=== PATIENT | female | born 1960 | race Caucasian/White ===

== ENCOUNTER 2017-11-09 09:45 | Inpatient (IN) | payer MEDICAID ==
[~2017-11-09] VITALS: Ht 147.3 cm; Wt 59.2 kg
[2017-11-09 10:30] LABS: Urine Bacteria NONE SEEN /hpf (None Seen); Urine Blood Negative /uL (Negative); Urine Hyaline Cast FEW /lpf (0 - 2); Urine Mucus MODERATE (None Seen); Urine Specific Gravity 1.022 (1.001-1.035); Urine WBC 2 /hpf (0 - 5)
[2017-11-09 10:34] LABS: Basophils # (auto) 0.1 uL; Eosinophils # (auto) 0.1 uL; Hemoglobin 9.2 g/dL (12.2-16.2); Lymphocytes # (auto) 0.6 uL; Mean Corpuscular Volume 106.7 fL (80.0-100.0); White Blood Cell 14.7 10^3/uL (4.4-10.8)
[2017-11-09 10:36] LABS: Basophils % (auto) 0.6 % (0.0-2.0); Eosinophils % (auto) 0.5 % (0.0-7.0); Hematocrit 27.3 % (36.0-46.0); Lymphocytes % (auto) 4.2 % (10.0-50.0); Mean Corpuscular Hemoglobin 36.1 pg (28.0-32.0); Mean Corpuscular Hgb Conc. 33.8 g/dL (32.0-36.0); Monocytes % (auto) 6.5 % (0.0-12.0); Neutrophils % (auto) 88.2 % (37.0-80.0); Nucleated Red Blood Cells % 0.1 %; Platelet Count (auto) 199 10^3/uL (140-450); Red Blood Cells 2.56 10^6/uL (4.0-5.20); Red Cell Distribution Width 19.9 % (11.8-14.3)
[2017-11-09 10:42] LABS: Alcohol, Urine < 3.0 mg/dL (0-5); Amphetamine Screen, Urine NEGATIVE (NEGATIVE); Barbiturate Scree,Urine NEGATIVE (NEGATIVE); Benzodiazephine Screen, Urine NEGATIVE (NEGATIVE); Cannabinoid Screen, Urine NEGATIVE (NEGATIVE); Cocaine Screen, Urine NEGATIVE (NEGATIVE); Opiate Scree,Urine NEGATIVE (NEGATIVE); Phencyclidine Screen, Urine NEGATIVE (NEGATIVE)
[2017-11-09 10:57] LABS: Albumin 2.9 g/dL (3.4-5.0); BUN/Creatinine Ratio 5.6; Bilirubin, Total 4.6 mg/dL (0.2-1.0); Blood Alcohol < 3.0 mg/dL (0-5); Lipase 2261 U/L (73-393); Magnesium 1.3 mg/dL (1.6-2.6); Total Protein 6.7 g/dL (6.4-8.2)
[2017-11-09 11:02] LABS: Potassium 2.6 mmol/L (3.5-5.1)
[2017-11-09] MEDS: POTASSIUM CHL 20MEQ/100ML 100 ML IV SCH ×2 (12:10→14:34)
[2017-11-09] MEDS ORDERED: LORazepam 2MG/ML-1ML VIAL IV PRN (13:30)
[2017-11-09] MEDS ORDERED: LACTULOSE 20Gm/30ML SOLN PO ONE (13:45)
[2017-11-09] MEDS ORDERED: MORPHINE SULFATE 8mg/ml INJ SDV IV PRN (13:45)
[2017-11-09] MEDS ORDERED: MAGNESIUM SULFATE 1GM/100ML 100 ML IV ONE (13:45)
[2017-11-09] MEDS ORDERED: TEMAZEPAM 15 MG CAP PO PRN (13:45)
[2017-11-09] MEDS ORDERED: cefTRIAXone 1GM/10ml IVPUSH 10 ML IV ONE (13:45)
[2017-11-09] MEDS ORDERED: DOCUSATE SOD 100 MG CAP PO PRN (13:45)
[2017-11-09] MEDS ORDERED: ACETAMINOPHEN 325 MG TAB PO PRN (13:45)
[2017-11-09] MEDS ORDERED: ONDANSETRON HCL 4 MG/2 ML VIAL IV PRN (13:45)
[2017-11-09] MEDS ORDERED: NITROGLYCERIN 0.4 MG SL TAB SL PRN (13:45)
[2017-11-09] MEDS ORDERED: MULTIPLE VITAMIN TAB PO ONE (14:00)
[2017-11-09] MEDS ORDERED: FAMOTIDINE 20 MG TAB PO ONE (14:00)
[2017-11-09] MEDS: MORPHINE SULFATE 8mg/ml INJ SDV IV PRN (14:06)
[2017-11-09] MEDS: SODIUM CHLORIDE 0.9% 1,000 ML IV SCH ×2 (14:34→22:01)
[2017-11-09] MEDS: GABAPENTIN 300 MG CAP PO SCH ×2 (14:52→22:01)
[2017-11-09] MEDS: metroNIDAZOLE 500MG/100ML 100 ML IV SCH ×2 (15:23→22:01)
[2017-11-09 17:19] LABS: BUN/Creatinine Ratio 5.1
[2017-11-09 17:25] LABS: Potassium 2.6 mmol/L (3.5-5.1)
[2017-11-09] MEDS ORDERED: POTASSIUM CHL 20MEQ/100ML 100 ML IV ONE (17:30)
[2017-11-09] MEDS: BOOST PLUS 8 ounce PO SCH (17:40)
[2017-11-09] MEDS: HYDROcodone-ACET 5/325MG TAB PO PRN (19:22)
[2017-11-09 21:30] VITALS: BP 117/69
[2017-11-09 21:45] LABS: BUN/Creatinine Ratio 9.5; Calcium 7.9 mg/dL (8.5-10.1); Potassium 3.5 mmol/L (3.5-5.1)
[2017-11-09 22:00] VITALS: BP 117/69
[2017-11-09] MEDS: FAMOTIDINE 20 MG TAB PO SCH (22:02)
[2017-11-09] MEDS: LACTULOSE 20Gm/30ML SOLN PO SCH (22:02)
[2017-11-10] MEDS: chlordiazePOXIDE HCL 25 MG CAP PO PRN ×3 (00:09→11:57)
[2017-11-10 05:00] VITALS: BP 112/71
[2017-11-10] MEDS: SODIUM CHLORIDE 0.9% 1,000 ML IV SCH (06:00)
[2017-11-10] MEDS: metroNIDAZOLE 500MG/100ML 100 ML IV SCH (06:00)
[2017-11-10] MEDS: GABAPENTIN 300 MG CAP PO SCH ×3 (06:01→22:35)
[2017-11-10 07:08] LABS: Basophils # (auto) 0.1 uL; Eosinophils # (auto) 0.1 uL; Lymphocytes # (auto) 0.5 uL; Platelet Count (auto) 154 10^3/uL (140-450)
[2017-11-10 07:12] LABS: Basophils % (auto) 0.7 % (0.0-2.0); Eosinophils % (auto) 1.7 % (0.0-7.0); Hematocrit 23.6 % (36.0-46.0); Hemoglobin 8.1 g/dL (12.2-16.2); Lymphocytes % (auto) 5.8 % (10.0-50.0); Mean Corpuscular Hemoglobin 37.2 pg (28.0-32.0); Mean Corpuscular Hgb Conc. 34.4 g/dL (32.0-36.0); Monocytes # (auto) 0.6 uL; Neutrophils # (auto) 7.1 uL; Neutrophils % (auto) 84.8 % (37.0-80.0); Nucleated Red Blood Cells % 0.3 %; Red Blood Cells 2.18 10^6/uL (4.0-5.20); Red Cell Distribution Width 19.3 % (11.8-14.3); White Blood Cell 8.4 10^3/uL (4.4-10.8)
[2017-11-10 07:18] LABS: Mean Corpuscular Volume 108.1 fL (80.0-100.0)
[2017-11-10 07:40] LABS: Albumin 2.3 g/dL (3.4-5.0); BUN/Creatinine Ratio 7.1; Bilirubin, Total 3.1 mg/dL (0.2-1.0); Magnesium 1.5 mg/dL (1.6-2.6); Total Protein 5.3 g/dL (6.4-8.2)
[2017-11-10 07:56] LABS: Potassium 2.5 mmol/L (3.5-5.1)
[2017-11-10 07:57] VITALS: BP 111/69
[2017-11-10] MEDS: BOOST PLUS 8 ounce PO SCH ×3 (08:00→18:00)
[2017-11-10] MEDS ORDERED: POTASSIUM CHL 20 Meq TABLET PO ONE (08:30)
[2017-11-10] MEDS ORDERED: POTASSIUM CHLORIDE IV ONE (09:00)
[2017-11-10] MEDS ORDERED: cefTRIAXone 1GM/10ml IVPUSH 10 ML IV SCH (09:00)
[2017-11-10] MEDS ORDERED: POTASSIUM CHL 20MEQ/100ML 100 ML IV SCH (09:00)
[2017-11-10] MEDS: MULTIPLE VITAMIN TAB PO SCH (10:00)
[2017-11-10] MEDS ORDERED: POTASSIUM CHL 20MEQ/50ML 50 ML IV SCH (10:00)
[2017-11-10] MEDS: LACTULOSE 20Gm/30ML SOLN PO SCH ×2 (10:00→22:36)
[2017-11-10] MEDS: POTASSIUM CHL 20MEQ/100ML 100 ML IV SCH ×2 (10:03→11:54)
[2017-11-10] MEDS: FAMOTIDINE 20 MG TAB PO SCH ×2 (10:05→22:36)
[2017-11-10 11:40] VITALS: BP 112/70
[2017-11-10] MEDS ORDERED: D5W/SOD CHL 0.9%/KCL 40MEQ 1,000 ML IV ONE (11:45)
[2017-11-10] MEDS: MAGNESIUM SULFATE 1GM/100ML 100 ML IV SCH ×3 (12:00→19:06)
[2017-11-10] MEDS: chlordiazePOXIDE HCL 25 MG CAP PO SCH ×2 (14:00→22:36)
[2017-11-10] MEDS ORDERED: MAGNESIUM SULFATE 1GM/100ML 100 ML IV ONE ×2 (19:30)
[2017-11-10] MEDS: POTASSIUM CHL 20 Meq TABLET PO SCH (22:35)
[2017-11-11 00:20] VITALS: BP 106/64
[2017-11-11 05:40] VITALS: BP 117/76
[2017-11-11] MEDS: GABAPENTIN 300 MG CAP PO SCH ×3 (05:53→22:07)
[2017-11-11] MEDS: chlordiazePOXIDE HCL 25 MG CAP PO SCH ×3 (05:53→22:07)
[2017-11-11 08:15] LABS: Basophils # (auto) 0.1 uL; Basophils % (auto) 1.3 % (0.0-2.0); Eosinophils # (auto) 0.1 uL; Eosinophils % (auto) 1.6 % (0.0-7.0); Hematocrit 23.3 % (36.0-46.0); Hemoglobin 7.7 g/dL (12.2-16.2); Lymphocytes # (auto) 0.6 uL; Lymphocytes % (auto) 6.4 % (10.0-50.0); Mean Corpuscular Hemoglobin 36.3 pg (28.0-32.0); Mean Corpuscular Hgb Conc. 33.2 g/dL (32.0-36.0); Mean Corpuscular Volume 109.5 fL (80.0-100.0); Monocytes # (auto) 0.9 uL; Monocytes % (auto) 9.8 % (0.0-12.0); Neutrophils # (auto) 7.6 uL; Neutrophils % (auto) 80.9 % (37.0-80.0); Nucleated Red Blood Cells % 0.6 %; Platelet Count (auto) 178 10^3/uL (140-450); Red Blood Cells 2.13 10^6/uL (4.0-5.20); Red Cell Distribution Width 19.3 % (11.8-14.3); White Blood Cell 9.3 10^3/uL (4.4-10.8)
[2017-11-11 08:22] LABS: BUN/Creatinine Ratio 2.1; Calcium 8.1 mg/dL (8.5-10.1); Potassium 3.6 mmol/L (3.5-5.1)
[2017-11-11 09:00] VITALS: BP 94/58
[2017-11-11] MEDS: POTASSIUM CHL 20 Meq TABLET PO SCH (10:40)
[2017-11-11] MEDS: LACTULOSE 20Gm/30ML SOLN PO SCH ×2 (10:40→22:06)
[2017-11-11] MEDS: MULTIPLE VITAMIN TAB PO SCH (10:40)
[2017-11-11] MEDS: FAMOTIDINE 20 MG TAB PO SCH ×2 (10:40→22:07)
[2017-11-11] MEDS: BOOST PLUS 8 ounce PO SCH ×3 (10:45→22:06)
[2017-11-11 22:00] VITALS: BP 120/69
[2017-11-12 05:20] VITALS: BP 108/69
[2017-11-12] MEDS: GABAPENTIN 300 MG CAP PO SCH ×3 (06:00→23:43)
[2017-11-12] MEDS: chlordiazePOXIDE HCL 25 MG CAP PO SCH ×3 (06:00→23:43)
[2017-11-12 07:13] LABS: Basophils # (auto) 0.1 uL; Eosinophils # (auto) 0.2 uL; Hemoglobin 7.9 g/dL (12.2-16.2); Lymphocytes # (auto) 0.7 uL; Neutrophils # (auto) 7.7 uL; Nucleated Red Blood Cells % 0.6 %
[2017-11-12 07:17] LABS: Basophils % (auto) 1.2 % (0.0-2.0); Eosinophils % (auto) 1.7 % (0.0-7.0); Hematocrit 23.5 % (36.0-46.0); Lymphocytes % (auto) 6.9 % (10.0-50.0); Mean Corpuscular Hemoglobin 37.3 pg (28.0-32.0); Mean Corpuscular Hgb Conc. 33.6 g/dL (32.0-36.0); Monocytes % (auto) 10.5 % (0.0-12.0); Neutrophils % (auto) 79.7 % (37.0-80.0); Platelet Count (auto) 176 10^3/uL (140-450); Red Blood Cells 2.12 10^6/uL (4.0-5.20); Red Cell Distribution Width 20.3 % (11.8-14.3); White Blood Cell 9.6 10^3/uL (4.4-10.8)
[2017-11-12 07:32] LABS: Calcium 8.6 mg/dL (8.5-10.1); Magnesium 1.8 mg/dL (1.6-2.6); Potassium 3.3 mmol/L (3.5-5.1)
[2017-11-12 07:46] LABS: BUN/Creatinine Ratio 7.1
[2017-11-12 08:00] VITALS: BP 108/67
[2017-11-12 09:00] VITALS: BP 100/67
[2017-11-12] MEDS: FAMOTIDINE 20 MG TAB PO SCH ×2 (09:54→23:44)
[2017-11-12] MEDS: LACTULOSE 20Gm/30ML SOLN PO SCH (09:54)
[2017-11-12] MEDS: MULTIPLE VITAMIN TAB PO SCH (09:54)
[2017-11-12] MEDS: BOOST PLUS 8 ounce PO SCH ×3 (10:02→18:31)
[2017-11-12 13:00] VITALS: BP 93/55
[2017-11-12] MEDS: MORPHINE SULFATE 8mg/ml INJ SDV IV PRN (19:56)
[2017-11-12 21:54] VITALS: BP 99/63
[2017-11-13 05:00] VITALS: BP 96/67
[2017-11-13] MEDS: GABAPENTIN 300 MG CAP PO SCH ×3 (05:58→23:07)
[2017-11-13] MEDS: chlordiazePOXIDE HCL 25 MG CAP PO SCH ×3 (05:58→23:06)
[2017-11-13 06:03] LABS: Eosinophils # (auto) 0.2 uL; Eosinophils % (auto) 1.6 % (0.0-7.0)
[2017-11-13 06:30] LABS: Basophils # (auto) 0.1 uL; Basophils % (auto) 1.3 % (0.0-2.0); Hematocrit 23.4 % (36.0-46.0); Hemoglobin 7.6 g/dL (12.2-16.2); Lymphocytes # (auto) 0.6 uL; Lymphocytes % (auto) 6.2 % (10.0-50.0); Mean Corpuscular Hgb Conc. 32.5 g/dL (32.0-36.0); Mean Corpuscular Volume 113.8 fL (80.0-100.0); Monocytes % (auto) 9.9 % (0.0-12.0); Neutrophils # (auto) 8.5 uL; Nucleated Red Blood Cells % 0.2 %; Platelet Count (auto) 191 10^3/uL (140-450); Red Blood Cells 2.06 10^6/uL (4.0-5.20); White Blood Cell 10.5 10^3/uL (4.4-10.8)
[2017-11-13 06:39] LABS: Red Cell Distribution Width 21.5 % (11.8-14.3)
[2017-11-13 06:41] LABS: BUN/Creatinine Ratio 9.1; Calcium 8.1 mg/dL (8.5-10.1); Potassium 3.4 mmol/L (3.5-5.1)
[2017-11-13 08:00] VITALS: BP 99/63
[2017-11-13] MEDS: BOOST PLUS 8 ounce PO SCH ×3 (08:00→18:00)
[2017-11-13] MEDS: MULTIPLE VITAMIN TAB PO SCH (10:00)
[2017-11-13] MEDS: LACTULOSE 20Gm/30ML SOLN PO SCH (10:00)
[2017-11-13] MEDS: FAMOTIDINE 20 MG TAB PO SCH ×2 (10:00→23:07)
[2017-11-13 13:00] VITALS: BP 92/58
[2017-11-13] MEDS ORDERED: SODIUM CHLORIDE 0.9% 250 ML IV ONE (14:00)
[2017-11-13] MEDS: SOD CHL 0.9%/ KCL 40MEQ 1,000 ML IV SCH ×2 (15:12→23:45)
[2017-11-13] MEDS: metroNIDAZOLE 500MG/100ML 100 ML IV SCH ×2 (15:12→20:42)
[2017-11-13] MEDS ORDERED: SODIUM CHLORIDE 0.9% 1,000 ML IV SCH (15:30)
[2017-11-13] MEDS ORDERED: SODIUM CHLORIDE 0.9% 1,000 ML IV ONE (15:30)
[2017-11-13] MEDS: CEFEPIME HYDROCHLORIDE 2 GM in SODIUM CHL 0.9% 50 ML IV SCH (16:40)
[2017-11-13 19:01] LABS: Folate (Folic Acid) 7.17 ng/mL (5.38-24)
[2017-11-13 22:06] VITALS: BP 124/90
[2017-11-13 22:09] VITALS: BP 110/66
[2017-11-14] MEDS: CEFEPIME HYDROCHLORIDE 2 GM in SODIUM CHL 0.9% 50 ML IV SCH ×3 (00:15→17:35)
[2017-11-14] MEDS: MORPHINE SULFATE 8mg/ml INJ SDV IV PRN (02:00)
[2017-11-14] MEDS: metroNIDAZOLE 500MG/100ML 100 ML IV SCH ×4 (02:06→20:24)
[2017-11-14 05:25] VITALS: BP 95/60
[2017-11-14] MEDS: chlordiazePOXIDE HCL 25 MG CAP PO SCH ×3 (05:59→22:43)
[2017-11-14] MEDS: GABAPENTIN 300 MG CAP PO SCH ×3 (05:59→22:43)
[2017-11-14 06:11] LABS: INR 1.41 (0.9-1.15); Prothrombin Time 15.4 sec (9.37-12.3)
[2017-11-14 06:22] LABS: Hemoglobin 7.7 g/dL (12.2-16.2); Monocytes # (auto) 1.1 uL; Potassium 4.2 mmol/L (3.5-5.1)
[2017-11-14 06:26] LABS: Albumin 1.9 g/dL (3.4-5.0); BUN/Creatinine Ratio 17.2; Calcium 7.7 mg/dL (8.5-10.1)
[2017-11-14 06:27] LABS: Basophils # (auto) 0.1 uL; Basophils % (auto) 0.9 % (0.0-2.0); Eosinophils # (auto) 0.1 uL; Eosinophils % (auto) 1.3 % (0.0-7.0); Hematocrit 23.3 % (36.0-46.0); Lymphocytes # (auto) 0.6 uL; Mean Corpuscular Hemoglobin 37.4 pg (28.0-32.0); Mean Corpuscular Hgb Conc. 32.8 g/dL (32.0-36.0); Mean Corpuscular Volume 113.9 fL (80.0-100.0); Monocytes % (auto) 10.1 % (0.0-12.0); Neutrophils # (auto) 9.2 uL; Neutrophils % (auto) 82.7 % (37.0-80.0); Nucleated Red Blood Cells % 0.4 %; Platelet Count (auto) 214 10^3/uL (140-450); Red Blood Cells 2.05 10^6/uL (4.0-5.20); White Blood Cell 11.1 10^3/uL (4.4-10.8)
[2017-11-14 06:29] LABS: Bilirubin, Total 4.7 mg/dL (0.2-1.0); Total Protein 4.8 g/dL (6.4-8.2)
[2017-11-14 06:48] LABS: Red Cell Distribution Width 21.4 % (11.8-14.3)
[2017-11-14 08:00] VITALS: BP 99/64
[2017-11-14] MEDS: BOOST PLUS 8 ounce PO SCH ×3 (08:00→17:56)
[2017-11-14 09:00] VITALS: BP 99/64
[2017-11-14] MEDS: SOD CHL 0.9%/ KCL 40MEQ 1,000 ML IV SCH ×2 (09:45→20:23)
[2017-11-14] MEDS: FAMOTIDINE 20 MG TAB PO SCH ×2 (10:00→22:44)
[2017-11-14] MEDS: LACTULOSE 20Gm/30ML SOLN PO SCH (10:41)
[2017-11-14] MEDS: THIAMINE INJ 100 MG, MULTIPLE VITAMIN 10 ML, FOLIC ACID 1 MG, MAGNESIUM SULF SDV 50% 8 ... IV SCH ×5 (12:27)
[2017-11-14 13:00] VITALS: BP 100/63
[2017-11-14 16:55] VITALS: BP 104/68
[2017-11-14] MEDS ORDERED: FUROSEMIDE 40 MG/4 ML VIAL IV ONE (19:45)
[2017-11-14 21:06] VITALS: BP 138/82
[2017-11-15] MEDS: CEFEPIME HYDROCHLORIDE 2 GM in SODIUM CHL 0.9% 50 ML IV SCH ×2 (00:02→09:59)
[2017-11-15] MEDS: metroNIDAZOLE 500MG/100ML 100 ML IV SCH ×4 (01:54→21:43)
[2017-11-15 05:00] VITALS: BP 126/81
[2017-11-15] MEDS: SOD CHL 0.9%/ KCL 40MEQ 1,000 ML IV SCH ×2 (05:45→15:45)
[2017-11-15] MEDS: chlordiazePOXIDE HCL 25 MG CAP PO SCH ×2 (06:00→14:13)
[2017-11-15] MEDS: GABAPENTIN 300 MG CAP PO SCH ×3 (06:00→22:38)
[2017-11-15 06:49] LABS: Basophils # (auto) 0.1 uL; Eosinophils # (auto) 0.1 uL; Lymphocytes # (auto) 0.7 uL; Neutrophils # (auto) 10.4 uL; Nucleated Red Blood Cells % 0.4 %; White Blood Cell 12.4 10^3/uL (4.4-10.8)
[2017-11-15 06:52] LABS: Hematocrit 24.7 % (36.0-46.0); Lymphocytes % (auto) 5.7 % (10.0-50.0); Mean Corpuscular Hemoglobin 36.6 pg (28.0-32.0); Mean Corpuscular Hgb Conc. 32.4 g/dL (32.0-36.0); Monocytes % (auto) 8.4 % (0.0-12.0); Neutrophils % (auto) 83.9 % (37.0-80.0); Platelet Count (auto) 248 10^3/uL (140-450); Red Blood Cells 2.19 10^6/uL (4.0-5.20)
[2017-11-15 06:58] LABS: Red Cell Distribution Width 20.9 % (11.8-14.3)
[2017-11-15 07:12] LABS: Albumin 1.9 g/dL (3.4-5.0); BUN/Creatinine Ratio 14.7; Calcium 7.5 mg/dL (8.5-10.1)
[2017-11-15 07:24] LABS: Bilirubin, Total 5.6 mg/dL (0.2-1.0); Total Protein 4.9 g/dL (6.4-8.2)
[2017-11-15] MEDS: BOOST PLUS 8 ounce PO SCH ×3 (08:00→18:00)
[2017-11-15] MEDS: LACTULOSE 20Gm/30ML SOLN PO SCH (09:59)
[2017-11-15] MEDS: FAMOTIDINE 20 MG TAB PO SCH ×2 (09:59→22:39)
[2017-11-15 10:16] VITALS: BP 111/69
[2017-11-15 13:20] VITALS: BP 107/65
[2017-11-15] MEDS: POTASSIUM CHL 20MEQ/100ML 100 ML IV SCH ×2 (13:30→14:12)
[2017-11-15] MEDS: THIAMINE INJ 100 MG, MULTIPLE VITAMIN 10 ML, FOLIC ACID 1 MG, MAGNESIUM SULF SDV 50% 8 ... IV SCH ×5 (14:12)
[2017-11-15 18:19] VITALS: BP 110/60
[2017-11-15 20:00] VITALS: BP 111/65
[2017-11-15 23:25] VITALS: BP 111/65
[2017-11-16] MEDS: SOD CHL 0.9%/ KCL 40MEQ 1,000 ML IV SCH ×4 (01:45→21:57)
[2017-11-16] MEDS: metroNIDAZOLE 500MG/100ML 100 ML IV SCH ×3 (02:08→13:25)
[2017-11-16 05:21] VITALS: BP 102/63
[2017-11-16] MEDS: GABAPENTIN 300 MG CAP PO SCH ×3 (05:33→21:56)
[2017-11-16] MEDS: CEFEPIME HYDROCHLORIDE 2 GM in SODIUM CHL 0.9% 50 ML IV SCH ×2 (08:18→15:55)
[2017-11-16] MEDS: BOOST PLUS 8 ounce PO SCH ×3 (08:19→18:00)
[2017-11-16 09:00] VITALS: BP 120/72
[2017-11-16] MEDS ORDERED: chlordiazePOXIDE HCL 25 MG CAP PO SCH (10:00)
[2017-11-16] MEDS: LACTULOSE 20Gm/30ML SOLN PO SCH (10:00)
[2017-11-16] MEDS: FAMOTIDINE 20 MG TAB PO SCH ×2 (10:51→21:57)
[2017-11-16] MEDS: THIAMINE INJ 100 MG, MULTIPLE VITAMIN 10 ML, FOLIC ACID 1 MG, MAGNESIUM SULF SDV 50% 8 ... IV SCH ×10 (12:13→12:34)
[2017-11-16] MEDS: MORPHINE SULFATE 8mg/ml INJ SDV IV PRN (12:57)
[2017-11-16 13:00] VITALS: BP 106/67
[2017-11-16 17:00] VITALS: BP 115/72
[2017-11-16] MEDS: PRO-STAT 64 30ML PO SCH (21:57)
[2017-11-16 22:11] VITALS: BP 148/82
[2017-11-17 05:09] VITALS: BP 110/62
[2017-11-17] MEDS: GABAPENTIN 300 MG CAP PO SCH ×3 (05:33→21:52)
[2017-11-17 09:00] VITALS: BP 116/72
[2017-11-17] MEDS: LACTULOSE 20Gm/30ML SOLN PO SCH (10:00)
[2017-11-17] MEDS: BOOST PLUS 8 ounce PO SCH ×3 (10:18→18:16)
[2017-11-17] MEDS: PRO-STAT 64 30ML PO SCH ×2 (10:19→21:53)
[2017-11-17] MEDS: FAMOTIDINE 20 MG TAB PO SCH ×2 (10:19→21:52)
[2017-11-17 13:00] VITALS: BP 121/79
[2017-11-17] MEDS: THIAMINE INJ 100 MG, MULTIPLE VITAMIN 10 ML, FOLIC ACID 1 MG, MAGNESIUM SULF SDV 50% 8 ... IV SCH ×5 (13:07)
[2017-11-17] MEDS: SOD CHL 0.9%/ KCL 40MEQ 1,000 ML IV SCH ×2 (15:41→19:00)
[2017-11-18 00:35] VITALS: BP 117/77
[2017-11-18] MEDS: SOD CHL 0.9%/ KCL 40MEQ 1,000 ML IV SCH ×3 (03:35→23:44)
[2017-11-18 05:06] LABS: RPR Non Reactive (Non Reactive)
[2017-11-18 05:40] VITALS: BP 104/69
[2017-11-18] MEDS: GABAPENTIN 300 MG CAP PO SCH ×3 (06:19→21:33)
[2017-11-18 07:03] LABS: Albumin 1.8 g/dL (3.4-5.0); Calcium 7.2 mg/dL (8.5-10.1)
[2017-11-18 07:05] LABS: BUN/Creatinine Ratio 17.4
[2017-11-18 07:08] LABS: Bilirubin, Total 4.2 mg/dL (0.2-1.0); Total Protein 4.9 g/dL (6.4-8.2)
[2017-11-18] MEDS: PRO-STAT 64 30ML PO SCH ×2 (08:14→21:33)
[2017-11-18] MEDS: BOOST PLUS 8 ounce PO SCH ×3 (08:14→18:29)
[2017-11-18 08:33] VITALS: BP 122/74
[2017-11-18] MEDS: LACTULOSE 20Gm/30ML SOLN PO SCH (08:49)
[2017-11-18] MEDS: FAMOTIDINE 20 MG TAB PO SCH ×2 (08:49→21:33)
[2017-11-18] MEDS ORDERED: chlordiazePOXIDE HCL 25 MG CAP PO SCH (10:00)
[2017-11-18 12:16] VITALS: BP 121/70
[2017-11-18] MEDS: THIAMINE INJ 100 MG, MULTIPLE VITAMIN 10 ML, FOLIC ACID 1 MG, MAGNESIUM SULF SDV 50% 8 ... IV SCH ×5 (12:18)
[2017-11-18 16:15] VITALS: BP 122/74
[2017-11-18 22:00] VITALS: BP 139/85
[2017-11-18] MEDS ORDERED: MVI in SODIUM CHLORIDE 0.9% 1,010 ML ONE (22:07)
[2017-11-19 05:00] VITALS: BP 139/90
[2017-11-19] MEDS: GABAPENTIN 300 MG CAP PO SCH ×3 (05:50→21:32)
[2017-11-19 08:45] VITALS: BP 127/81
[2017-11-19] MEDS: BOOST PLUS 8 ounce PO SCH ×3 (09:14→16:57)
[2017-11-19] MEDS: PRO-STAT 64 30ML PO SCH ×2 (09:15→21:32)
[2017-11-19] MEDS: LACTULOSE 20Gm/30ML SOLN PO SCH (09:15)
[2017-11-19] MEDS: FAMOTIDINE 20 MG TAB PO SCH ×2 (09:15→21:32)
[2017-11-19] MEDS: SOD CHL 0.9%/ KCL 40MEQ 1,000 ML IV SCH (10:03)
[2017-11-19] MEDS: THIAMINE INJ 100 MG, MULTIPLE VITAMIN 10 ML, FOLIC ACID 1 MG, MAGNESIUM SULF SDV 50% 8 ... IV SCH ×5 (12:25)
[2017-11-19 12:30] VITALS: BP 132/81
[2017-11-19 16:00] VITALS: BP 141/89
[2017-11-19 18:59] LABS: Basophils # (auto) 0.1 uL; Eosinophils # (auto) 0.2 uL; Monocytes # (auto) 0.9 uL; Nucleated Red Blood Cells % 0.1 %
[2017-11-19 19:01] LABS: Basophils % (auto) 0.7 % (0.0-2.0); Eosinophils % (auto) 1.5 % (0.0-7.0); Hematocrit 28.9 % (36.0-46.0); Hemoglobin 9.1 g/dL (12.2-16.2); Lymphocytes % (auto) 6.4 % (10.0-50.0); Mean Corpuscular Hemoglobin 36.5 pg (28.0-32.0); Mean Corpuscular Hgb Conc. 31.3 g/dL (32.0-36.0); Mean Corpuscular Volume 116.4 fL (80.0-100.0); Monocytes % (auto) 5.8 % (0.0-12.0); Neutrophils # (auto) 13.6 uL; Neutrophils % (auto) 85.6 % (37.0-80.0); Platelet Count (auto) 264 10^3/uL (140-450); Red Blood Cells 2.48 10^6/uL (4.0-5.20); White Blood Cell 15.9 10^3/uL (4.4-10.8)
[2017-11-19 19:10] LABS: Red Cell Distribution Width 21.4 % (11.8-14.3)
[2017-11-19 19:13] LABS: Albumin 1.8 g/dL (3.4-5.0); BUN/Creatinine Ratio 15.4; Calcium 7.3 mg/dL (8.5-10.1); Potassium 4.3 mmol/L (3.5-5.1)
[2017-11-19 19:17] LABS: Bilirubin, Total 4.3 mg/dL (0.2-1.0); Total Protein 5.3 g/dL (6.4-8.2)
[2017-11-19] MEDS ORDERED: ENOXAPARIN SOD 40 MG/0.4 ML SYRINGE SC ONE (19:30)
[2017-11-19] MEDS ORDERED: VANCOMYCIN PER PHARMACY 0 MG IV SCH (19:30)
[2017-11-19] MEDS ORDERED: SOD CHL 0.45% WITH 20MEQ KCL 1,000 ML IV SCH (19:30)
[2017-11-19] MEDS ORDERED: LEVOFLOXACIN 500MG 100 ML IV ONE ×2 (19:30→23:00)
[2017-11-19] MEDS ORDERED: FUROSEMIDE 20 MG/2 ML VIAL IV ONE (19:30)
[2017-11-19] MEDS ORDERED: VANCOMYCIN 1GM/250ML 250 ML IV ONE (19:30)
[2017-11-19] MEDS: VANCOMYCIN 1GM/250ML 250 ML IV SCH (21:32)
[2017-11-19 22:00] VITALS: BP 132/80
[2017-11-20 05:00] VITALS: BP 129/74
[2017-11-20] MEDS: GABAPENTIN 300 MG CAP PO SCH ×4 (05:54→22:11)
[2017-11-20 07:17] LABS: Lymphocytes # (auto) 1.1 uL; Nucleated Red Blood Cells % 0.1 %; Red Blood Cells 2.46 10^6/uL (4.0-5.20)
[2017-11-20 07:22] LABS: Albumin 1.9 g/dL (3.4-5.0); BUN/Creatinine Ratio 12.5; Bilirubin, Total 4.5 mg/dL (0.2-1.0); Calcium 7.7 mg/dL (8.5-10.1); Potassium 3.8 mmol/L (3.5-5.1); Total Protein 5.4 g/dL (6.4-8.2)
[2017-11-20 07:25] LABS: Basophils # (auto) 0.2 uL; Basophils % (auto) 1.1 % (0.0-2.0); Eosinophils # (auto) 0.3 uL; Eosinophils % (auto) 1.5 % (0.0-7.0); Hematocrit 28.6 % (36.0-46.0); Lymphocytes % (auto) 6.3 % (10.0-50.0); Mean Corpuscular Hemoglobin 36.8 pg (28.0-32.0); Mean Corpuscular Hgb Conc. 31.6 g/dL (32.0-36.0); Mean Corpuscular Volume 116.5 fL (80.0-100.0); Monocytes % (auto) 6.2 % (0.0-12.0); Neutrophils # (auto) 14.3 uL; Neutrophils % (auto) 84.9 % (37.0-80.0); Platelet Count (auto) 277 10^3/uL (140-450); White Blood Cell 16.9 10^3/uL (4.4-10.8)
[2017-11-20 07:29] LABS: Red Cell Distribution Width 20.9 % (11.8-14.3)
[2017-11-20] MEDS: BOOST PLUS 8 ounce PO SCH ×3 (08:00→18:22)
[2017-11-20 09:00] VITALS: BP 97/62
[2017-11-20] MEDS ORDERED: IOHEXOL 350 MG/ML 100ML IJ ONE (09:10)
[2017-11-20] MEDS ORDERED: BISACODYL 10 MG RECT SUPP PR ONE (09:15)
[2017-11-20] MEDS: VANCOMYCIN 1GM/250ML 250 ML IV SCH ×2 (10:05→22:11)
[2017-11-20] MEDS: FAMOTIDINE 20 MG TAB PO SCH ×3 (10:20→22:11)
[2017-11-20] MEDS: LACTULOSE 20Gm/30ML SOLN PO SCH (10:20)
[2017-11-20] MEDS: ENOXAPARIN SOD 40 MG/0.4 ML SYRINGE SC SCH (10:21)
[2017-11-20] MEDS: PRO-STAT 64 30ML PO SCH ×2 (10:21→22:11)
[2017-11-20] MEDS: LEVOFLOXACIN 500MG 100 ML IV SCH (10:21)
[2017-11-20 10:49] LABS: Folate (Folic Acid) 10.21 ng/mL (5.38-24)
[2017-11-20 12:18] LABS: Hepatitis A Ab IgM Negative; Hepatitis B Core IgM Negative; Hepatitis B Surface Antigen Negative (Negative); Hepatitis C Antibody Negative (Negative)
[2017-11-20 13:00] VITALS: BP 97/63
[2017-11-20] MEDS: SOD CHL 0.45% WITH 20MEQ KCL 1,000 ML IV SCH (14:29)
[2017-11-20 17:00] VITALS: BP 102/70
[2017-11-20 22:00] VITALS: BP 127/86
[2017-11-21] MEDS: SOD CHL 0.45% WITH 20MEQ KCL 1,000 ML IV SCH (04:45)
[2017-11-21 05:00] VITALS: BP 133/80
[2017-11-21] MEDS: GABAPENTIN 300 MG CAP PO SCH ×3 (05:43→22:00)
[2017-11-21 05:49] LABS: Basophils # (auto) 0.2 uL; Platelet Count (auto) 247 10^3/uL (140-450)
[2017-11-21 05:57] LABS: Basophils % (auto) 1.2 % (0.0-2.0); Eosinophils # (auto) 0.3 uL; Eosinophils % (auto) 1.6 % (0.0-7.0); Hematocrit 28.5 % (36.0-46.0); Hemoglobin 9.2 g/dL (12.2-16.2); Lymphocytes # (auto) 0.9 uL; Lymphocytes % (auto) 5.8 % (10.0-50.0); Mean Corpuscular Hemoglobin 38.1 pg (28.0-32.0); Mean Corpuscular Hgb Conc. 32.3 g/dL (32.0-36.0); Mean Corpuscular Volume 117.9 fL (80.0-100.0); Monocytes % (auto) 6.1 % (0.0-12.0); Neutrophils # (auto) 13.8 uL; Neutrophils % (auto) 85.3 % (37.0-80.0); Nucleated Red Blood Cells % 0.1 %; Red Blood Cells 2.42 10^6/uL (4.0-5.20); White Blood Cell 16.2 10^3/uL (4.4-10.8)
[2017-11-21 05:58] LABS: Red Cell Distribution Width 20.9 % (11.8-14.3)
[2017-11-21 06:12] LABS: Albumin 1.8 g/dL (3.4-5.0); Bilirubin, Total 4.1 mg/dL (0.2-1.0); Calcium 7.7 mg/dL (8.5-10.1); Potassium 3.4 mmol/L (3.5-5.1); Total Protein 5.1 g/dL (6.4-8.2)
[2017-11-21 09:00] VITALS: BP 130/81
[2017-11-21] MEDS: BOOST PLUS 8 ounce PO SCH ×3 (09:15→18:02)
[2017-11-21] MEDS: ENOXAPARIN SOD 40 MG/0.4 ML SYRINGE SC SCH (09:15)
[2017-11-21] MEDS: FAMOTIDINE 20 MG TAB PO SCH ×2 (09:15→22:00)
[2017-11-21] MEDS: ACETAMINOPHEN 325 MG TAB PO PRN (09:19)
[2017-11-21] MEDS: VANCOMYCIN 1GM/250ML 250 ML IV SCH ×2 (09:20→21:44)
[2017-11-21] MEDS: PRO-STAT 64 30ML PO SCH (10:00)
[2017-11-21] MEDS: LACTULOSE 20Gm/30ML SOLN PO SCH (10:00)
[2017-11-21] MEDS: LEVOFLOXACIN 500MG 100 ML IV SCH (10:39)
[2017-11-21] MEDS ORDERED: POTASSIUM CHLORIDE 20 MEQ in D5W 5% 1,000 ML IV SCH (11:30)
[2017-11-21] MEDS ORDERED: POTASSIUM CHL 20MEQ/100ML 100 ML IV ONE (11:45)
[2017-11-21 12:56] VITALS: BP 102/64
[2017-11-21 16:47] VITALS: BP 149/85
[2017-11-21] MEDS: D5W 5% 1,000 ML IV SCH (16:57)
[2017-11-21] MEDS ORDERED: FLUCONAZOLE 100 MG TAB PO ONE (17:00)
[2017-11-21] MEDS: guaiFENesin-DM 100/10mg/5ml SYR PO PRN (17:48)
[2017-11-21 21:23] VITALS: BP 125/75
[2017-11-22] MEDS: PRO-STAT 64 30ML PO SCH ×3 (00:11→23:23)
[2017-11-22 05:03] VITALS: BP 166/86
[2017-11-22 05:20] VITALS: BP 125/75
[2017-11-22 05:44] VITALS: BP 130/58
[2017-11-22 06:08] LABS: Eosinophils # (auto) 0.3 uL; Eosinophils % (auto) 1.7 % (0.0-7.0); Hemoglobin 8.4 g/dL (12.2-16.2); Monocytes % (auto) 5.5 % (0.0-12.0)
[2017-11-22 06:10] LABS: Basophils # (auto) 0.1 uL; Basophils % (auto) 0.4 % (0.0-2.0); Hematocrit 25.8 % (36.0-46.0); Lymphocytes # (auto) 0.9 uL; Mean Corpuscular Hemoglobin 37.3 pg (28.0-32.0); Mean Corpuscular Hgb Conc. 32.5 g/dL (32.0-36.0); Mean Corpuscular Volume 114.7 fL (80.0-100.0); Neutrophils # (auto) 15.3 uL; Neutrophils % (auto) 87.4 % (37.0-80.0); Platelet Count (auto) 240 10^3/uL (140-450); Red Blood Cells 2.25 10^6/uL (4.0-5.20); White Blood Cell 17.5 10^3/uL (4.4-10.8)
[2017-11-22 06:17] LABS: Red Cell Distribution Width 20.1 % (11.8-14.3)
[2017-11-22 06:39] LABS: BUN/Creatinine Ratio 13.7; Calcium 7.7 mg/dL (8.5-10.1); Potassium 3.4 mmol/L (3.5-5.1)
[2017-11-22] MEDS: VANCOMYCIN 1GM/250ML 250 ML IV SCH (07:09)
[2017-11-22] MEDS: GABAPENTIN 300 MG CAP PO SCH ×3 (07:10→23:22)
[2017-11-22] MEDS: BOOST PLUS 8 ounce PO SCH ×3 (08:00→18:00)
[2017-11-22 09:27] VITALS: BP 128/78
[2017-11-22] MEDS ORDERED: POTASSIUM CHL 10 Meq TABLET PO ONE (09:45)
[2017-11-22] MEDS ORDERED: POTASSIUM CHLORIDE 20 MEQ, LIDOCAINE 1% (LOCAL ANESTH.) 2 ML in SODIUM CHL 0.9% 100 ML IV ONE (10:00)
[2017-11-22] MEDS ORDERED: POTASSIUM CHL 20MEQ/100ML 100 ML IV ONE (10:15)
[2017-11-22] MEDS: D5W 5% 1,000 ML IV SCH (10:40)
[2017-11-22] MEDS: FAMOTIDINE 20 MG TAB PO SCH ×2 (10:45→23:22)
[2017-11-22] MEDS: LEVOFLOXACIN 500MG 100 ML IV SCH (10:46)
[2017-11-22] MEDS: FLUCONAZOLE 100 MG TAB PO SCH (10:46)
[2017-11-22] MEDS: LACTULOSE 20Gm/30ML SOLN PO SCH (10:47)
[2017-11-22] MEDS: ENOXAPARIN SOD 40 MG/0.4 ML SYRINGE SC SCH (10:47)
[2017-11-22 13:00] VITALS: BP 135/75
[2017-11-22] MEDS: guaiFENesin-DM 100/10mg/5ml SYR PO PRN ×2 (14:13→18:53)
[2017-11-22 20:00] VITALS: BP 97/63
[2017-11-23] MEDS: D5W 5% 1,000 ML IV SCH ×2 (04:07→23:45)
[2017-11-23 05:00] VITALS: BP 135/72
[2017-11-23 05:45] LABS: Lymphocytes # (auto) 0.7 uL
[2017-11-23 05:46] LABS: Basophils # (auto) 0.4 uL; Basophils % (auto) 2.1 % (0.0-2.0); Eosinophils # (auto) 0.4 uL; Hematocrit 25.2 % (36.0-46.0); Mean Corpuscular Hemoglobin 36.4 pg (28.0-32.0); Mean Corpuscular Hgb Conc. 31.7 g/dL (32.0-36.0); Monocytes % (auto) 5.3 % (0.0-12.0); Neutrophils # (auto) 15.7 uL; Neutrophils % (auto) 86.6 % (37.0-80.0); Platelet Count (auto) 225 10^3/uL (140-450); Red Blood Cells 2.19 10^6/uL (4.0-5.20); Red Cell Distribution Width 19.2 % (11.8-14.3); White Blood Cell 18.1 10^3/uL (4.4-10.8)
[2017-11-23] MEDS: GABAPENTIN 300 MG CAP PO SCH ×3 (06:00→21:38)
[2017-11-23 06:01] LABS: BUN/Creatinine Ratio 10.7; Calcium 7.5 mg/dL (8.5-10.1); Potassium 3.4 mmol/L (3.5-5.1)
[2017-11-23 09:00] VITALS: BP 120/78
[2017-11-23] MEDS ORDERED: VANCOMYCIN 1GM/250ML 250 ML IV SCH (10:00)
[2017-11-23] MEDS: ENOXAPARIN SOD 40 MG/0.4 ML SYRINGE SC SCH (10:07)
[2017-11-23] MEDS: guaiFENesin-DM 100/10mg/5ml SYR PO PRN ×3 (10:07→21:39)
[2017-11-23] MEDS: LACTULOSE 20Gm/30ML SOLN PO SCH (10:07)
[2017-11-23] MEDS: FLUCONAZOLE 100 MG TAB PO SCH (10:08)
[2017-11-23] MEDS: BOOST PLUS 8 ounce PO SCH ×3 (10:08→18:00)
[2017-11-23] MEDS: LEVOFLOXACIN 500MG 100 ML IV SCH (10:08)
[2017-11-23] MEDS: PRO-STAT 64 30ML PO SCH ×2 (10:36→22:00)
[2017-11-23] MEDS: FAMOTIDINE 20 MG TAB PO SCH ×2 (10:36→21:38)
[2017-11-23 13:47] VITALS: BP 120/69
[2017-11-23] MEDS: ceFAZolin 1GM/50ML 50 ML IV SCH ×2 (14:52→17:29)
[2017-11-23 17:32] VITALS: BP 123/71
[2017-11-23 20:00] VITALS: BP 120/78
[2017-11-23 22:00] VITALS: BP 120/78
[2017-11-24] MEDS: ceFAZolin 1GM/50ML 50 ML IV SCH ×4 (01:08→18:38)
[2017-11-24 05:00] VITALS: BP 120/68
[2017-11-24 05:57] LABS: Basophils # (auto) 0.1 uL; Eosinophils # (auto) 0.4 uL; Eosinophils % (auto) 2.5 % (0.0-7.0); Mean Corpuscular Hgb Conc. 31.3 g/dL (32.0-36.0)
[2017-11-24] MEDS: GABAPENTIN 300 MG CAP PO SCH ×3 (06:00→22:00)
[2017-11-24 06:01] LABS: Basophils % (auto) 0.6 % (0.0-2.0); Hematocrit 25.8 % (36.0-46.0); Hemoglobin 8.1 g/dL (12.2-16.2); Lymphocytes # (auto) 0.7 uL; Lymphocytes % (auto) 4.2 % (10.0-50.0); Mean Corpuscular Hemoglobin 36.4 pg (28.0-32.0); Mean Corpuscular Volume 116.2 fL (80.0-100.0); Monocytes # (auto) 1.1 uL; Monocytes % (auto) 6.5 % (0.0-12.0); Neutrophils % (auto) 86.2 % (37.0-80.0); Platelet Count (auto) 232 10^3/uL (140-450); Red Blood Cells 2.22 10^6/uL (4.0-5.20); Red Cell Distribution Width 19.1 % (11.8-14.3); White Blood Cell 17.4 10^3/uL (4.4-10.8)
[2017-11-24 06:29] LABS: Albumin 1.5 g/dL (3.4-5.0); BUN/Creatinine Ratio 11.3; Calcium 7.7 mg/dL (8.5-10.1); Potassium 3.5 mmol/L (3.5-5.1)
[2017-11-24 06:48] LABS: Bilirubin, Total 2.9 mg/dL (0.2-1.0)
[2017-11-24] MEDS: BOOST PLUS 8 ounce PO SCH ×3 (08:00→18:42)
[2017-11-24 09:00] VITALS: BP 123/71
[2017-11-24] MEDS ORDERED: LEVOFLOXACIN 250MG 50 ML IV SCH (10:00)
[2017-11-24] MEDS: PRO-STAT 64 30ML PO SCH ×2 (10:00→22:00)
[2017-11-24] MEDS: guaiFENesin-DM 100/10mg/5ml SYR PO PRN (10:23)
[2017-11-24] MEDS: ENOXAPARIN SOD 40 MG/0.4 ML SYRINGE SC SCH (10:27)
[2017-11-24] MEDS: LEVOFLOXACIN 500MG 100 ML IV SCH (10:28)
[2017-11-24] MEDS: LACTULOSE 20Gm/30ML SOLN PO SCH (10:28)
[2017-11-24] MEDS: FAMOTIDINE 20 MG TAB PO SCH ×2 (10:28→22:00)
[2017-11-24] MEDS: FLUCONAZOLE 100 MG TAB PO SCH (10:30)
[2017-11-24] MEDS: HYDROcodone-ACET 5/325MG TAB PO PRN (10:44)
[2017-11-24 13:00] VITALS: BP 93/63
[2017-11-24 17:00] VITALS: BP 94/63
[2017-11-24] MEDS: D5W 5% 1,000 ML IV SCH (19:45)
[2017-11-24 20:00] VITALS: BP 97/64
[2017-11-24 22:00] VITALS: BP 97/64
[2017-11-25 05:00] VITALS: BP 106/63
[2017-11-25] MEDS: guaiFENesin-DM 100/10mg/5ml SYR PO PRN ×2 (05:23→16:47)
[2017-11-25] MEDS: ACETAMINOPHEN 325 MG TAB PO PRN (05:23)
[2017-11-25] MEDS: GABAPENTIN 300 MG CAP PO SCH ×3 (05:35→23:20)
[2017-11-25] MEDS: ceFAZolin 1GM/50ML 50 ML IV SCH ×3 (05:35→11:49)
[2017-11-25 08:00] VITALS: BP 132/80
[2017-11-25 09:00] VITALS: BP 97/58
[2017-11-25] MEDS: LEVOFLOXACIN 500MG 100 ML IV SCH (10:53)
[2017-11-25] MEDS: FLUCONAZOLE 100 MG TAB PO SCH (10:53)
[2017-11-25] MEDS: ENOXAPARIN SOD 40 MG/0.4 ML SYRINGE SC SCH (10:54)
[2017-11-25] MEDS: LACTULOSE 20Gm/30ML SOLN PO SCH (10:54)
[2017-11-25] MEDS: FAMOTIDINE 20 MG TAB PO SCH ×2 (10:55→23:20)
[2017-11-25] MEDS: PRO-STAT 64 30ML PO SCH ×2 (10:55→22:00)
[2017-11-25] MEDS: BOOST PLUS 8 ounce PO SCH ×3 (10:56→18:03)
[2017-11-25] MEDS: D5W 5% 1,000 ML IV SCH (11:05)
[2017-11-25 13:00] VITALS: BP 95/45
[2017-11-25 13:14] VITALS: BP 97/58
[2017-11-25 21:48] VITALS: BP 106/57
[2017-11-26 05:00] VITALS: BP 108/64
[2017-11-26] MEDS: GABAPENTIN 300 MG CAP PO SCH ×3 (05:13→21:32)
[2017-11-26 07:05] LABS: Neutrophils # (auto) 12.9 uL
[2017-11-26 07:09] LABS: Basophils # (auto) 0.1 uL; Basophils % (auto) 0.6 % (0.0-2.0); Eosinophils # (auto) 0.5 uL; Hematocrit 24.7 % (36.0-46.0); Lymphocytes # (auto) 0.7 uL; Lymphocytes % (auto) 4.5 % (10.0-50.0); Mean Corpuscular Hemoglobin 36.1 pg (28.0-32.0); Mean Corpuscular Hgb Conc. 32.3 g/dL (32.0-36.0); Monocytes # (auto) 1.2 uL; Neutrophils % (auto) 83.9 % (37.0-80.0); Platelet Count (auto) 235 10^3/uL (140-450); Red Blood Cells 2.21 10^6/uL (4.0-5.20); Red Cell Distribution Width 17.6 % (11.8-14.3); White Blood Cell 15.4 10^3/uL (4.4-10.8)
[2017-11-26 07:10] LABS: INR 1.65 (0.9-1.15); Partial Thromboplastin Time 50.3 sec (22.64-33.71); Prothrombin Time 18.1 sec (9.37-12.3)
[2017-11-26 07:11] LABS: Potassium 3.5 mmol/L (3.5-5.1)
[2017-11-26 07:24] LABS: Albumin 1.5 g/dL (3.4-5.0); Bilirubin, Total 2.2 mg/dL (0.2-1.0); Total Protein 4.7 g/dL (6.4-8.2)
[2017-11-26 08:00] VITALS: BP 132/80
[2017-11-26 09:00] VITALS: BP 107/71
[2017-11-26] MEDS: LEVOFLOXACIN 500MG 100 ML IV SCH (09:50)
[2017-11-26] MEDS: FAMOTIDINE 20 MG TAB PO SCH ×2 (09:51→21:32)
[2017-11-26] MEDS: LACTULOSE 20Gm/30ML SOLN PO SCH (09:51)
[2017-11-26] MEDS: FLUCONAZOLE 100 MG TAB PO SCH (09:51)
[2017-11-26] MEDS: ENOXAPARIN SOD 40 MG/0.4 ML SYRINGE SC SCH (09:51)
[2017-11-26] MEDS: PRO-STAT 64 30ML PO SCH ×2 (09:52→21:32)
[2017-11-26] MEDS: BOOST PLUS 8 ounce PO SCH ×2 (09:52→12:28)
[2017-11-26] MEDS: D5W 5% 1,000 ML IV SCH (11:09)
[2017-11-26 13:00] VITALS: BP 121/73
[2017-11-26 17:00] VITALS: BP 125/84
[2017-11-26 21:55] VITALS: BP 118/75
[2017-11-27] MEDS: guaiFENesin-DM 100/10mg/5ml SYR PO PRN ×2 (01:23→21:15)
[2017-11-27] MEDS: GABAPENTIN 300 MG CAP PO SCH ×3 (05:31→21:16)
[2017-11-27 05:32] VITALS: BP 111/68
[2017-11-27 07:04] LABS: Hematocrit 25.3 % (36.0-46.0); Mean Corpuscular Hemoglobin 35.4 pg (28.0-32.0); Mean Corpuscular Hgb Conc. 31.7 g/dL (32.0-36.0); Mean Corpuscular Volume 111.6 fL (80.0-100.0); Platelet Count (auto) 258 10^3/uL (140-450); Red Blood Cells 2.27 10^6/uL (4.0-5.20); Red Cell Distribution Width 17.5 % (11.8-14.3); White Blood Cell 16.6 10^3/uL (4.4-10.8)
[2017-11-27 07:06] LABS: BUN/Creatinine Ratio 6.7; Calcium 8.2 mg/dL (8.5-10.1); Potassium 3.4 mmol/L (3.5-5.1)
[2017-11-27 07:17] LABS: Basophils % (manual) 0 (0.0-2.0); Blast Cells 0; Metamyelocytes % 0; Myelocytes % 0; Promyelocytes % 0; Reactive Lymphocytes 0
[2017-11-27 08:56] LABS: Band Neutrophils % (manual) 5; Eosinophils % (manual) 2 (0-7); Lymphocytes % (manual) 2 (10.0-50.0); Monocytes % (manual) 7 (0-12)
[2017-11-27 09:00] VITALS: BP 114/68
[2017-11-27] MEDS ORDERED: LIDOCAINE 2% (LOCAL ANESTH.) PF 5ml SDV ONE (09:03)
[2017-11-27] MEDS: LEVOFLOXACIN 500MG 100 ML IV SCH (10:12)
[2017-11-27] MEDS: FLUCONAZOLE 100 MG TAB PO SCH (10:12)
[2017-11-27] MEDS: PRO-STAT 64 30ML PO SCH ×2 (10:14→21:16)
[2017-11-27] MEDS ORDERED: NICOTINE 7MG/24HR TOPICAL PATCH TD ONE (10:15)
[2017-11-27] MEDS ORDERED: ONDANSETRON HCL 4 MG/2 ML VIAL IV PRN (10:15)
[2017-11-27] MEDS: D5W 5% 1,000 ML IV SCH (10:15)
[2017-11-27] MEDS ORDERED: DOCUSATE SOD 100 MG CAP PO PRN (10:15)
[2017-11-27 10:44] LABS: Free T4 (Free Thyroxine) 0.41 ng/dL (0.89-1.76)
[2017-11-27 10:45] LABS: Free T3 0.73 pg/mL (2.3-4.2)
[2017-11-27] MEDS: ALBUMIN 25% 100 ML IV SCH ×2 (12:28→13:48)
[2017-11-27] MEDS: BOOST PLUS 8 ounce PO SCH ×2 (12:29→18:53)
[2017-11-27 12:43] VITALS: BP 109/64
[2017-11-27] MEDS: FAMOTIDINE 20 MG TAB PO SCH (21:16)
[2017-11-27] MEDS: ACETAMINOPHEN 325 MG TAB PO PRN (21:16)
[2017-11-27 22:00] VITALS: BP 119/74
[2017-11-28] MEDS: D5W 5% 1,000 ML IV SCH ×2 (04:33→23:20)
[2017-11-28] MEDS: GABAPENTIN 300 MG CAP PO SCH ×4 (05:59→21:47)
[2017-11-28 06:24] VITALS: BP 127/80
[2017-11-28 07:25] LABS: Eosinophils # (auto) 0.6 uL; Hemoglobin 8.7 g/dL (12.2-16.2); Lymphocytes # (auto) 1.5 uL; Platelet Count (auto) 277 10^3/uL (140-450)
[2017-11-28 07:28] LABS: Basophils # (auto) 0.2 uL; Basophils % (auto) 0.7 % (0.0-2.0); Eosinophils % (auto) 2.7 % (0.0-7.0); Hematocrit 26.4 % (36.0-46.0); Lymphocytes % (auto) 6.7 % (10.0-50.0); Mean Corpuscular Hemoglobin 36.2 pg (28.0-32.0); Mean Corpuscular Hgb Conc. 33.1 g/dL (32.0-36.0); Mean Corpuscular Volume 109.5 fL (80.0-100.0); Monocytes # (auto) 1.6 uL; Monocytes % (auto) 7.1 % (0.0-12.0); Neutrophils # (auto) 18.8 uL; Neutrophils % (auto) 82.8 % (37.0-80.0); Red Blood Cells 2.41 10^6/uL (4.0-5.20); Red Cell Distribution Width 17.1 % (11.8-14.3); White Blood Cell 22.6 10^3/uL (4.4-10.8)
[2017-11-28 07:42] LABS: BUN/Creatinine Ratio 4.8; Calcium 8.3 mg/dL (8.5-10.1); Potassium 3.5 mmol/L (3.5-5.1)
[2017-11-28 08:54] VITALS: BP_SYST 122; BP_SYST 124; BP_DIAS 67; BP_DIAS 76
[2017-11-28] MEDS: BOOST PLUS 8 ounce PO SCH ×3 (09:43→18:00)
[2017-11-28] MEDS: FLUCONAZOLE 100 MG TAB PO SCH (09:44)
[2017-11-28] MEDS: LACTULOSE 20Gm/30ML SOLN PO SCH (09:44)
[2017-11-28] MEDS: LEVOFLOXACIN 500MG 100 ML IV SCH (09:44)
[2017-11-28] MEDS: FAMOTIDINE 20 MG TAB PO SCH ×3 (09:44→21:47)
[2017-11-28] MEDS: NICOTINE 7MG/24HR TOPICAL PATCH TD SCH (09:45)
[2017-11-28] MEDS: PRO-STAT 64 30ML PO SCH ×3 (09:45→21:47)
[2017-11-28] MEDS: ENOXAPARIN SOD 40 MG/0.4 ML SYRINGE SC SCH (09:45)
[2017-11-28] MEDS: guaiFENesin-DM 100/10mg/5ml SYR PO PRN ×2 (09:46→21:39)
[2017-11-28 12:12] VITALS: BP 118/84
[2017-11-28 16:23] VITALS: BP 125/78
[2017-11-28] MEDS: ACETAMINOPHEN 325 MG TAB PO PRN (21:39)
[2017-11-29 05:40] LABS: Basophils # (auto) 0.1 uL; Basophils % (auto) 0.5 % (0.0-2.0); Eosinophils # (auto) 0.5 uL; Eosinophils % (auto) 2.4 % (0.0-7.0); Hematocrit 26.2 % (36.0-46.0); Hemoglobin 8.6 g/dL (12.2-16.2); Lymphocytes # (auto) 1.2 uL; Mean Corpuscular Hemoglobin 35.7 pg (28.0-32.0); Mean Corpuscular Hgb Conc. 32.8 g/dL (32.0-36.0); Mean Corpuscular Volume 108.9 fL (80.0-100.0); Monocytes # (auto) 1.7 uL; Monocytes % (auto) 7.5 % (0.0-12.0); Neutrophils # (auto) 19.5 uL; Neutrophils % (auto) 84.6 % (37.0-80.0); Platelet Count (auto) 276 10^3/uL (140-450); Red Blood Cells 2.41 10^6/uL (4.0-5.20); Red Cell Distribution Width 17.4 % (11.8-14.3); White Blood Cell 23.1 10^3/uL (4.4-10.8)
[2017-11-29 06:04] LABS: BUN/Creatinine Ratio 5.1; Calcium 8.3 mg/dL (8.5-10.1); Potassium 3.3 mmol/L (3.5-5.1)
[2017-11-29] MEDS: GABAPENTIN 300 MG CAP PO SCH ×3 (06:15→20:55)
[2017-11-29] MEDS: BOOST PLUS 8 ounce PO SCH ×3 (08:00→18:22)
[2017-11-29 08:41] VITALS: BP 121/75
[2017-11-29] MEDS: PRO-STAT 64 30ML PO SCH ×2 (10:00→20:56)
[2017-11-29] MEDS: LEVOFLOXACIN 500MG 100 ML IV SCH (10:14)
[2017-11-29] MEDS: NICOTINE 7MG/24HR TOPICAL PATCH TD SCH (10:15)
[2017-11-29] MEDS: ENOXAPARIN SOD 40 MG/0.4 ML SYRINGE SC SCH (10:15)
[2017-11-29] MEDS: LACTULOSE 20Gm/30ML SOLN PO SCH (10:16)
[2017-11-29] MEDS: FAMOTIDINE 20 MG TAB PO SCH ×2 (10:16→20:55)
[2017-11-29] MEDS: FLUCONAZOLE 100 MG TAB PO SCH (10:16)
[2017-11-29 13:00] VITALS: BP 116/71
[2017-11-29] MEDS: PIPERACILLIN-TAZO 4.5GM 100 ML IV SCH ×2 (16:52→20:54)
[2017-11-29 17:00] VITALS: BP 112/70
[2017-11-29] MEDS: guaiFENesin-DM 100/10mg/5ml SYR PO PRN (20:53)
[2017-11-29] MEDS: D5W 5% 1,000 ML IV SCH (20:55)
[2017-11-29] MEDS: ACETAMINOPHEN 325 MG TAB PO PRN (20:55)
[2017-11-29 22:00] VITALS: BP 135/82
[2017-11-30] MEDS: PIPERACILLIN-TAZO 4.5GM 100 ML IV SCH ×4 (03:09→21:52)
[2017-11-30 05:16] VITALS: BP 130/72
[2017-11-30] MEDS: GABAPENTIN 300 MG CAP PO SCH ×3 (06:00→21:51)
[2017-11-30 07:30] LABS: Hemoglobin 7.9 g/dL (12.2-16.2); Lymphocytes # (auto) 0.9 uL
[2017-11-30 07:32] LABS: Basophils # (auto) 0.3 uL; Basophils % (auto) 1.6 % (0.0-2.0); Eosinophils # (auto) 0.7 uL; Eosinophils % (auto) 3.5 % (0.0-7.0); Hematocrit 24.6 % (36.0-46.0); Lymphocytes % (auto) 4.5 % (10.0-50.0); Mean Corpuscular Hemoglobin 34.9 pg (28.0-32.0); Mean Corpuscular Hgb Conc. 32.1 g/dL (32.0-36.0); Mean Corpuscular Volume 108.9 fL (80.0-100.0); Monocytes # (auto) 1.4 uL; Monocytes % (auto) 7.3 % (0.0-12.0); Neutrophils % (auto) 83.1 % (37.0-80.0); Platelet Count (auto) 257 10^3/uL (140-450); Red Blood Cells 2.26 10^6/uL (4.0-5.20); Red Cell Distribution Width 17.3 % (11.8-14.3); White Blood Cell 19.2 10^3/uL (4.4-10.8)
[2017-11-30 07:46] LABS: BUN/Creatinine Ratio 3.6; Calcium 7.6 mg/dL (8.5-10.1); Potassium 3.6 mmol/L (3.5-5.1)
[2017-11-30] MEDS: BOOST PLUS 8 ounce PO SCH ×3 (08:00→18:23)
[2017-11-30 08:54] LABS: INR 1.52 (0.9-1.15); Prothrombin Time 16.6 sec (9.37-12.3)
[2017-11-30 09:00] VITALS: BP 121/73
[2017-11-30] MEDS: FAMOTIDINE 20 MG TAB PO SCH ×2 (10:00→21:51)
[2017-11-30] MEDS: PRO-STAT 64 30ML PO SCH ×2 (10:00→21:58)
[2017-11-30] MEDS: FLUCONAZOLE 100 MG TAB PO SCH (10:00)
[2017-11-30] MEDS: LACTULOSE 20Gm/30ML SOLN PO SCH (10:00)
[2017-11-30] MEDS: ENOXAPARIN SOD 40 MG/0.4 ML SYRINGE SC SCH (12:23)
[2017-11-30] MEDS: NICOTINE 7MG/24HR TOPICAL PATCH TD SCH (12:24)
[2017-11-30 13:00] VITALS: BP 126/78
[2017-11-30 17:00] VITALS: BP 130/80
[2017-11-30] MEDS: D5W 5% 1,000 ML IV SCH (17:04)
[2017-11-30] MEDS: ACETAMINOPHEN 325 MG TAB PO PRN (19:59)
[2017-11-30] MEDS: guaiFENesin-DM 100/10mg/5ml SYR PO PRN (19:59)
[2017-11-30 20:00] VITALS: BP 138/85
[2017-11-30 22:00] VITALS: BP 138/85
[2017-12-01] VITALS (7 sets, daily range): BP systolic 96–133; BP diastolic 64–80
[2017-12-01] MEDS: PIPERACILLIN-TAZO 4.5GM 100 ML IV SCH ×4 (02:32→21:49)
[2017-12-01] MEDS: GABAPENTIN 300 MG CAP PO SCH ×3 (05:38→21:48)
[2017-12-01] MEDS: BOOST PLUS 8 ounce PO SCH ×3 (08:00→18:00)
[2017-12-01] MEDS: guaiFENesin-DM 100/10mg/5ml SYR PO PRN ×2 (08:50→21:48)
[2017-12-01] MEDS: D5W 5% 1,000 ML IV SCH (08:52)
[2017-12-01] MEDS: FAMOTIDINE 20 MG TAB PO SCH ×2 (09:53→21:48)
[2017-12-01] MEDS: LACTULOSE 20Gm/30ML SOLN PO SCH (09:53)
[2017-12-01] MEDS: FLUCONAZOLE 100 MG TAB PO SCH (09:53)
[2017-12-01] MEDS: PRO-STAT 64 30ML PO SCH ×2 (09:54→21:49)
[2017-12-01] MEDS: NICOTINE 7MG/24HR TOPICAL PATCH TD SCH (09:54)
[2017-12-01] MEDS: ENOXAPARIN SOD 40 MG/0.4 ML SYRINGE SC SCH (10:00)
[2017-12-02] MEDS: PIPERACILLIN-TAZO 4.5GM 100 ML IV SCH ×2 (03:23→09:02)
[2017-12-02 04:57] VITALS: BP 123/73
[2017-12-02] MEDS: D5W 5% 1,000 ML IV SCH ×2 (05:58→22:12)
[2017-12-02] MEDS: GABAPENTIN 300 MG CAP PO SCH ×3 (05:59→22:11)
[2017-12-02 06:54] LABS: Basophils # (auto) 0 uL; Basophils % (auto) 0.1 % (0.0-2.0); Eosinophils # (auto) 0.8 uL; Eosinophils % (auto) 3.2 % (0.0-7.0); Hematocrit 24.9 % (36.0-46.0); Hemoglobin 8.3 g/dL (12.2-16.2); Lymphocytes % (auto) 4.3 % (10.0-50.0); Mean Corpuscular Hemoglobin 35.6 pg (28.0-32.0); Mean Corpuscular Hgb Conc. 33.2 g/dL (32.0-36.0); Mean Corpuscular Volume 107.4 fL (80.0-100.0); Monocytes # (auto) 1.4 uL; Monocytes % (auto) 6.1 % (0.0-12.0); Neutrophils # (auto) 20.5 uL; Neutrophils % (auto) 86.3 % (37.0-80.0); Platelet Count (auto) 256 10^3/uL (140-450); Red Blood Cells 2.32 10^6/uL (4.0-5.20); Red Cell Distribution Width 16.5 % (11.8-14.3); White Blood Cell 23.8 10^3/uL (4.4-10.8)
[2017-12-02 07:35] VITALS: BP 132/78
[2017-12-02] MEDS: BOOST PLUS 8 ounce PO SCH ×3 (08:00→18:56)
[2017-12-02] MEDS: FLUCONAZOLE 100 MG TAB PO SCH (09:03)
[2017-12-02] MEDS: LACTULOSE 20Gm/30ML SOLN PO SCH ×2 (09:03→11:28)
[2017-12-02] MEDS: NICOTINE 7MG/24HR TOPICAL PATCH TD SCH (09:04)
[2017-12-02] MEDS: FAMOTIDINE 20 MG TAB PO SCH ×2 (09:05→22:11)
[2017-12-02 09:06] VITALS: BP 134/88
[2017-12-02] MEDS: PRO-STAT 64 30ML PO SCH ×2 (10:00→22:12)
[2017-12-02] MEDS: ENOXAPARIN SOD 40 MG/0.4 ML SYRINGE SC SCH (10:00)
[2017-12-02] MEDS: ACETAMINOPHEN 325 MG TAB PO PRN (11:32)
[2017-12-02] MEDS ORDERED: VANCOMYCIN PER PHARMACY 0 MG IV SCH (12:15)
[2017-12-02] MEDS ORDERED: LEVOFLOXACIN 750MG 150 ML IV ONE ×2 (12:15→13:00)
[2017-12-02 12:39] VITALS: BP 132/78
[2017-12-02] MEDS ORDERED: VANCOMYCIN 1GM/250ML 250 ML IV ONE (14:30)
[2017-12-02 16:49] VITALS: BP 120/57
[2017-12-02 22:00] VITALS: BP 141/84
[2017-12-03 05:00] VITALS: BP 131/82
[2017-12-03] MEDS: GABAPENTIN 300 MG CAP PO SCH ×3 (05:46→21:40)
[2017-12-03 07:12] LABS: Basophils # (auto) 0.1 uL; Eosinophils # (auto) 0.6 uL; Hemoglobin 8.4 g/dL (12.2-16.2); Red Blood Cells 2.38 10^6/uL (4.0-5.20)
[2017-12-03 07:25] LABS: Basophils % (auto) 0.6 % (0.0-2.0); Eosinophils % (auto) 2.7 % (0.0-7.0); Hematocrit 25.6 % (36.0-46.0); Mean Corpuscular Hemoglobin 35.3 pg (28.0-32.0); Mean Corpuscular Hgb Conc. 32.9 g/dL (32.0-36.0); Mean Corpuscular Volume 107.2 fL (80.0-100.0); Monocytes # (auto) 1.7 uL; Monocytes % (auto) 7.1 % (0.0-12.0); Neutrophils # (auto) 20.6 uL; Neutrophils % (auto) 85.6 % (37.0-80.0); Nucleated Red Blood Cells % 0.1 %; Platelet Count (auto) 256 10^3/uL (140-450); Red Cell Distribution Width 16.6 % (11.8-14.3); White Blood Cell 24.1 10^3/uL (4.4-10.8)
[2017-12-03 07:26] LABS: Potassium 3.3 mmol/L (3.5-5.1)
[2017-12-03 07:34] LABS: Albumin 1.7 g/dL (3.4-5.0); BUN/Creatinine Ratio 4.5; Calcium 7.8 mg/dL (8.5-10.1)
[2017-12-03 07:35] VITALS: BP 137/86
[2017-12-03 07:36] LABS: Total Protein 4.8 g/dL (6.4-8.2)
[2017-12-03 07:47] LABS: Bilirubin, Total 2.2 mg/dL (0.2-1.0)
[2017-12-03 08:51] VITALS: BP 137/86
[2017-12-03] MEDS: VANCOMYCIN 750 MG in D5W 5% 250 ML IV SCH ×2 (09:47→21:08)
[2017-12-03] MEDS: FLUCONAZOLE 100 MG TAB PO SCH (09:48)
[2017-12-03] MEDS: FAMOTIDINE 20 MG TAB PO SCH (09:48)
[2017-12-03] MEDS: NICOTINE 7MG/24HR TOPICAL PATCH TD SCH (09:52)
[2017-12-03] MEDS: BOOST PLUS 8 ounce PO SCH ×3 (09:57→20:26)
[2017-12-03] MEDS: ENOXAPARIN SOD 40 MG/0.4 ML SYRINGE SC SCH (10:00)
[2017-12-03] MEDS: PRO-STAT 64 30ML PO SCH ×2 (10:00→21:40)
[2017-12-03] MEDS: LEVOFLOXACIN 750MG 150 ML IV SCH (11:41)
[2017-12-03] MEDS: guaiFENesin-DM 100/10mg/5ml SYR PO PRN ×2 (11:45→15:47)
[2017-12-03 12:50] VITALS: BP 140/83
[2017-12-03] MEDS: ACETAMINOPHEN 325 MG TAB PO PRN (15:55)
[2017-12-03 16:50] VITALS: BP 129/76
[2017-12-03] MEDS: D5W 5% 1,000 ML IV SCH (20:26)
[2017-12-03 22:00] VITALS: BP 132/75
[2017-12-04 05:00] VITALS: BP 117/61
[2017-12-04] MEDS: GABAPENTIN 300 MG CAP PO SCH ×3 (05:39→21:27)
[2017-12-04] MEDS: ACETAMINOPHEN 325 MG TAB PO PRN ×3 (06:11→19:33)
[2017-12-04 07:38] LABS: Red Cell Distribution Width 16.6 % (11.8-14.3)
[2017-12-04 07:41] LABS: Hematocrit 25.8 % (36.0-46.0); Hemoglobin 8.5 g/dL (12.2-16.2); Mean Corpuscular Hemoglobin 35.2 pg (28.0-32.0); Mean Corpuscular Hgb Conc. 32.8 g/dL (32.0-36.0); Mean Corpuscular Volume 107.1 fL (80.0-100.0); Platelet Count (auto) 277 10^3/uL (140-450); Red Blood Cells 2.41 10^6/uL (4.0-5.20)
[2017-12-04 07:51] LABS: BUN/Creatinine Ratio 4.9; Potassium 3.4 mmol/L (3.5-5.1)
[2017-12-04 08:03] LABS: White Blood Cell 30.5 10^3/uL (4.4-10.8)
[2017-12-04 08:04] LABS: Basophils % (manual) 0 (0.0-2.0); Blast Cells 0; Metamyelocytes % 0; Myelocytes % 0; Promyelocytes % 0; Reactive Lymphocytes 0
[2017-12-04 08:12] LABS: INR 1.49 (0.9-1.15); Prothrombin Time 16.3 sec (9.37-12.3)
[2017-12-04] MEDS: BOOST PLUS 8 ounce PO SCH ×3 (09:12→17:40)
[2017-12-04] MEDS: LACTULOSE 20Gm/30ML SOLN PO SCH (09:12)
[2017-12-04] MEDS: ENOXAPARIN SOD 40 MG/0.4 ML SYRINGE SC SCH ×3 (09:13→17:39)
[2017-12-04] MEDS: PRO-STAT 64 30ML PO SCH ×2 (09:13→22:34)
[2017-12-04] MEDS: FAMOTIDINE 20 MG TAB PO SCH (09:13)
[2017-12-04] MEDS: FLUCONAZOLE 100 MG TAB PO SCH (09:14)
[2017-12-04] MEDS: guaiFENesin-DM 100/10mg/5ml SYR PO PRN ×2 (09:14→19:32)
[2017-12-04] MEDS: NICOTINE 7MG/24HR TOPICAL PATCH TD SCH (09:14)
[2017-12-04 09:18] LABS: Band Neutrophils % (manual) 5; Eosinophils % (manual) 1 (0-7); Lymphocytes % (manual) 4 (10.0-50.0); Monocytes % (manual) 4 (0-12)
[2017-12-04 09:32] VITALS: BP 153/93
[2017-12-04] MEDS: VANCOMYCIN 750 MG in D5W 5% 250 ML IV SCH ×2 (10:08→21:30)
[2017-12-04] MEDS: PIPERACILLIN-TAZOB 3.375GM 100 ML IV SCH ×2 (12:10→17:40)
[2017-12-04] MEDS ORDERED: POTASSIUM CHL 10 Meq TABLET PO ONE (12:30)
[2017-12-04 13:00] VITALS: BP 152/89
[2017-12-04 17:18] VITALS: BP 128/69
[2017-12-04] MEDS: D5W 5% 1,000 ML IV SCH (21:27)
[2017-12-04 22:00] VITALS: BP 129/97
[2017-12-05] MEDS: PIPERACILLIN-TAZOB 3.375GM 100 ML IV SCH ×5 (00:18→23:32)
[2017-12-05 05:00] VITALS: BP 127/75
[2017-12-05] MEDS: GABAPENTIN 300 MG CAP PO SCH ×3 (05:39→22:09)
[2017-12-05 05:55] LABS: Eosinophils # (auto) 0.6 uL; Hemoglobin 8.1 g/dL (12.2-16.2)
[2017-12-05 05:57] LABS: Basophils # (auto) 0 uL; Basophils % (auto) 0.1 % (0.0-2.0); Eosinophils % (auto) 2.3 % (0.0-7.0); Hematocrit 24.1 % (36.0-46.0); Lymphocytes # (auto) 1.1 uL; Lymphocytes % (auto) 4.2 % (10.0-50.0); Mean Corpuscular Hemoglobin 35.7 pg (28.0-32.0); Mean Corpuscular Hgb Conc. 33.7 g/dL (32.0-36.0); Mean Corpuscular Volume 105.8 fL (80.0-100.0); Monocytes # (auto) 1.4 uL; Monocytes % (auto) 5.4 % (0.0-12.0); Neutrophils # (auto) 23.4 uL; Platelet Count (auto) 277 10^3/uL (140-450); Red Blood Cells 2.27 10^6/uL (4.0-5.20); Red Cell Distribution Width 16.4 % (11.8-14.3); White Blood Cell 26.6 10^3/uL (4.4-10.8)
[2017-12-05 06:03] LABS: Calcium 8.1 mg/dL (8.5-10.1); Potassium 3.3 mmol/L (3.5-5.1)
[2017-12-05 06:05] LABS: BUN/Creatinine Ratio 4.1
[2017-12-05 09:00] VITALS: BP 136/79
[2017-12-05] MEDS: LEVOFLOXACIN 750MG 150 ML IV SCH (09:41)
[2017-12-05] MEDS: BOOST PLUS 8 ounce PO SCH ×3 (09:41→17:31)
[2017-12-05] MEDS: FAMOTIDINE 20 MG TAB PO SCH (09:42)
[2017-12-05] MEDS: FLUCONAZOLE 100 MG TAB PO SCH (09:42)
[2017-12-05] MEDS: NICOTINE 7MG/24HR TOPICAL PATCH TD SCH (09:42)
[2017-12-05] MEDS: ENOXAPARIN SOD 40 MG/0.4 ML SYRINGE SC SCH (09:43)
[2017-12-05] MEDS: LACTULOSE 20Gm/30ML SOLN PO SCH (09:43)
[2017-12-05] MEDS: guaiFENesin-DM 100/10mg/5ml SYR PO PRN ×2 (09:46→19:21)
[2017-12-05] MEDS: VANCOMYCIN 750 MG in D5W 5% 250 ML IV SCH ×2 (09:52→22:29)
[2017-12-05 13:00] VITALS: BP 130/86
[2017-12-05] MEDS: D5W 5% 1,000 ML IV SCH (15:45)
[2017-12-05 17:00] VITALS: BP 139/89
[2017-12-05] MEDS: SPIRONOLACTONE 25 MG TAB PO SCH (17:31)
[2017-12-05] MEDS: POTASSIUM CHL 20 Meq TABLET PO SCH (17:32)
[2017-12-05] MEDS: FUROSEMIDE 20 MG TAB PO SCH (17:33)
[2017-12-05] MEDS: ACETAMINOPHEN 325 MG TAB PO PRN (19:39)
[2017-12-06] MEDS: PIPERACILLIN-TAZOB 3.375GM 100 ML IV SCH ×3 (05:32→17:55)
[2017-12-06] MEDS: POTASSIUM CHL 20 Meq TABLET PO SCH ×3 (05:33→21:51)
[2017-12-06] MEDS: SPIRONOLACTONE 25 MG TAB PO SCH ×2 (05:33→17:56)
[2017-12-06] MEDS: GABAPENTIN 300 MG CAP PO SCH ×3 (05:33→21:51)
[2017-12-06] MEDS: FUROSEMIDE 20 MG TAB PO SCH ×2 (05:34→17:55)
[2017-12-06 05:56] VITALS: BP 132/80
[2017-12-06 07:15] LABS: BUN/Creatinine Ratio 3.1; Calcium 8.1 mg/dL (8.5-10.1)
[2017-12-06] MEDS: BOOST PLUS 8 ounce PO SCH ×3 (08:47→17:55)
[2017-12-06 09:00] VITALS: BP 122/74
[2017-12-06] MEDS: FAMOTIDINE 20 MG TAB PO SCH (09:17)
[2017-12-06] MEDS: NICOTINE 7MG/24HR TOPICAL PATCH TD SCH (09:17)
[2017-12-06] MEDS: ENOXAPARIN SOD 40 MG/0.4 ML SYRINGE SC SCH (09:17)
[2017-12-06] MEDS: FLUCONAZOLE 100 MG TAB PO SCH (09:17)
[2017-12-06] MEDS: guaiFENesin-DM 100/10mg/5ml SYR PO PRN (09:18)
[2017-12-06] MEDS: LACTULOSE 20Gm/30ML SOLN PO SCH (09:18)
[2017-12-06] MEDS: LEVOFLOXACIN 750MG 150 ML IV SCH (10:25)
[2017-12-06] MEDS: VANCOMYCIN 750 MG in D5W 5% 250 ML IV SCH (11:24)
[2017-12-06] MEDS: ACETAMINOPHEN 325 MG TAB PO PRN (12:28)
[2017-12-06 13:00] VITALS: BP 143/77
[2017-12-06 16:50] VITALS: BP 117/76
[2017-12-06] MEDS: D5W 5% 1,000 ML IV SCH (20:51)
[2017-12-06 21:08] VITALS: BP 124/82
[2017-12-07] MEDS: PIPERACILLIN-TAZOB 3.375GM 100 ML IV SCH ×4 (00:09→18:00)
[2017-12-07] MEDS: ACETAMINOPHEN 325 MG TAB PO PRN ×3 (00:10→15:45)
[2017-12-07] MEDS: VANCOMYCIN 750 MG in D5W 5% 250 ML IV SCH (02:53)
[2017-12-07 05:24] VITALS: BP 108/62
[2017-12-07] MEDS: GABAPENTIN 300 MG CAP PO SCH ×2 (06:32→06:51)
[2017-12-07] MEDS: POTASSIUM CHL 20 Meq TABLET PO SCH ×2 (06:32→06:51)
[2017-12-07] MEDS: FUROSEMIDE 20 MG TAB PO SCH ×2 (06:33→06:51)
[2017-12-07] MEDS: SPIRONOLACTONE 25 MG TAB PO SCH ×2 (06:33→06:50)
[2017-12-07] MEDS: D5W 5% 1,000 ML IV SCH (06:50)
[2017-12-07 08:12] VITALS: BP 126/74
[2017-12-07 08:16] LABS: Albumin 1.7 g/dL (3.4-5.0); BUN/Creatinine Ratio 3.1; Bilirubin, Total 2.3 mg/dL (0.2-1.0); Calcium 8.1 mg/dL (8.5-10.1); Potassium 3.3 mmol/L (3.5-5.1); Total Protein 4.9 g/dL (6.4-8.2)
[2017-12-07] MEDS: LACTULOSE 20Gm/30ML SOLN PO SCH (09:42)
[2017-12-07] MEDS: FLUCONAZOLE 100 MG TAB PO SCH (09:43)
[2017-12-07] MEDS: NICOTINE 7MG/24HR TOPICAL PATCH TD SCH (09:46)
[2017-12-07] MEDS: ENOXAPARIN SOD 40 MG/0.4 ML SYRINGE SC SCH (09:46)
[2017-12-07] MEDS: FAMOTIDINE 20 MG TAB PO SCH (10:00)
[2017-12-07] MEDS: LEVOFLOXACIN 750MG 150 ML IV SCH (10:58)
[2017-12-07] MEDS: BOOST PLUS 8 ounce PO SCH ×3 (11:02→18:00)
[2017-12-07] MEDS ORDERED: guaiFENesin-DM 100/10mg/5ml SYR PO PRN (13:00)
[2017-12-07 15:37] VITALS: BP 124/70
[2017-12-07] MEDS ORDERED: VANCOMYCIN 750 MG in D5W 5% 250 ML IV SCH (16:00)
[2017-12-07 17:33] VITALS: BP 122/69
== END 2017-12-07 19:20 | DRG 264 ==
LOC: ER 09:48 → TELE 09:49 → TELE-WESTW 21:25 → WEST WING 11-12 23:17
PROVIDERS: ADMIT Internal Medicine; ATTEND Internal Medicine Pulmonary Disease
PROC: 0W9G3ZX Drainage of Peritoneal Cavity, Percutaneous Approach, Diagnostic (ICD-10-PCS; 2017-11-19)
PROC: 02HV33Z Insertion of Infusion Device into Superior Vena Cava, Percutaneous Approach (ICD-10-PCS; principal; 2017-11-28)
DX: K85.20 Alcohol induced acute pancreatitis without necrosis or infection (principal); N17.0 Acute kidney failure with tubular necrosis; R65.11 Systemic inflammatory response syndrome (SIRS) of non-infectious origin with acute organ dysfunction; G92 Toxic encephalopathy; J18.9 Pneumonia, unspecified organism; E44.0 Moderate protein-calorie malnutrition; D68.9 Coagulation defect, unspecified; E87.0 Hyperosmolality and hypernatremia; E83.42 Hypomagnesemia; K70.11 Alcoholic hepatitis with ascites; I50.9 Heart failure, unspecified; K72.90 Hepatic failure, unspecified without coma; K76.0 Fatty (change of) liver, not elsewhere classified; E87.1 Hypo-osmolality and hyponatremia; K59.00 Constipation, unspecified; D63.8 Anemia in other chronic diseases classified elsewhere; F10.10 Alcohol abuse, uncomplicated; E87.6 Hypokalemia; I25.10 Atherosclerotic heart disease of native coronary artery without angina pectoris; K74.60 Unspecified cirrhosis of liver; D53.9 Nutritional anemia, unspecified; F17.200 Nicotine dependence, unspecified, uncomplicated; F20.9 Schizophrenia, unspecified; F31.9 Bipolar disorder, unspecified; K29.20 Alcoholic gastritis without bleeding; K72.10 Chronic hepatic failure without coma; Y95 Nosocomial condition; Z80.1 Family history of malignant neoplasm of trachea, bronchus and lung; Z98.51 Tubal ligation status; Z79.899 Other long term (current) drug therapy; Z68.27 Body mass index [BMI] 27.0-27.9, adult
CPT/HCPCS: 10022; 36415; 70450; 71045; 71046; 71275; 74176; 76604; 76700; 76705; 76942; 78226; 80048; 80053; 80074; 80076; 80202; 80307; 80320; 81001; 82140; 82150; 82607; 82746; 82962; 83690; 83735; 84132; 84439; 84443; 84481; 85007; 85025; 85027; 85610; 85730; 86592; 87040; 87070; 87077; 87081; 87086; 87186; 87205; 87493; 92610; 93005; 93306; 94761; 95819; 96361; 96365; 96375; 97110; 97116; 97163; 97530; J0690; J1956; J2001; J2270; J2405; J2543; J3480; J3490; J7042; J7060; P9047

== ENCOUNTER 2018-03-03 08:35 | Inpatient (IN) | payer MEDICAID ==
[~2018-03-03] VITALS: Ht 147.3 cm; Wt 49.1 kg
[2018-03-03 09:25] LABS: Urine Bacteria NONE SEEN /hpf (None Seen); Urine Blood Negative /uL (Negative); Urine Mucus FEW (None Seen); Urine Specific Gravity 1.016 (1.001-1.035); Urine WBC 2 /hpf (0 - 5)
[2018-03-03 10:00] LABS: Albumin 2.8 g/dL (3.4-5.0); Bilirubin, Total 3.1 mg/dL (0.2-1.0); Total Protein 6.1 g/dL (6.4-8.2)
[2018-03-03 10:11] LABS: Potassium 2.9 mmol/L (3.5-5.1)
[2018-03-03 10:15] LABS: White Blood Cell 3.7 10^3/uL (4.4-10.8)
[2018-03-03 10:17] LABS: Hematocrit 17.6 % (36.0-46.0); Mean Corpuscular Hemoglobin 21.1 pg (28.0-32.0); Mean Corpuscular Hgb Conc. 30.9 g/dL (32.0-36.0); Mean Corpuscular Volume 68.3 fL (80.0-100.0); Platelet Count (auto) 164 10^3/uL (140-450); Red Blood Cells 2.58 10^6/uL (4.0-5.20)
[2018-03-03 10:18] LABS: Hemoglobin 5.4 g/dL (12.2-16.2)
[2018-03-03 10:19] LABS: Basophils % (manual) 0 (0.0-2.0); Blast Cells 0; Metamyelocytes % 0; Myelocytes % 0; Promyelocytes % 0; Reactive Lymphocytes 0
[2018-03-03 11:12] LABS: INR 1.31 (0.9-1.15); Partial Thromboplastin Time 31.4 sec (23.78-33.04); Prothrombin Time 13.8 sec (9.27-12.13)
[2018-03-03] MEDS ORDERED: cefTRIAXone 1GM/10ml IVPUSH 10 ML IV ONE ×2 (11:45→14:00)
[2018-03-03] MEDS ORDERED: POTASSIUM EFFERVESENT TAB 25 MEQ PO ONE (12:00)
[2018-03-03 12:38] LABS: Band Neutrophils % (manual) 1; Eosinophils % (manual) 3 (0-7); Lymphocytes % (manual) 20 (10.0-50.0); Monocytes % (manual) 10 (0-12)
[2018-03-03 12:55] VITALS: BP 173/73
[2018-03-03 13:10] VITALS: BP 160/86
[2018-03-03] MEDS ORDERED: HYDROcodone-ACET 5/325MG TAB PO ONE (13:15)
[2018-03-03] MEDS ORDERED: LORazepam 2MG/ML-1ML VIAL IV PRN (14:00)
[2018-03-03] MEDS ORDERED: NITROGLYCERIN 0.4 MG SL TAB SL PRN (14:00)
[2018-03-03] MEDS ORDERED: SPIRONOLACTONE 25 MG TAB PO ONE (14:00)
[2018-03-03] MEDS ORDERED: MORPHINE SULF INJ 2 MG/ML SYRINGE 1ML IV PRN ×2 (14:00→14:15)
[2018-03-03] MEDS ORDERED: PROMETHAZINE HCL 25 MG/ML 1ML IV PRN (14:00)
[2018-03-03] MEDS ORDERED: MORPHINE SULFATE 4 MG/ML SYR/VIAL IV PRN ×2 (14:00)
[2018-03-03] MEDS: PANTOPRAZOLE 40 MG/10 ML VIAL IV ONE ×2 (14:14→14:28)
[2018-03-03] MEDS: SOD CHL 0.9%/ KCL 40MEQ 1,000 ML IV SCH ×2 (14:28→23:49)
[2018-03-03] MEDS ORDERED: THIAMINE 100mg/ml INJ (200mg/2ml VIAL) IV ONE (15:00)
[2018-03-03] MEDS: metroNIDAZOLE 500MG/100ML 100 ML IV SCH ×3 (16:00→23:57)
[2018-03-03 16:13] VITALS: BP 163/94
[2018-03-03] MEDS: LABETALOL HCL 5 MG/ML ML 20ML VIAL IV PRN ×2 (17:47→23:14)
[2018-03-03] MEDS: chlordiazePOXIDE HCL 25 MG CAP PO PRN (17:54)
[2018-03-03] MEDS: chlordiazePOXIDE HCL 5 MG CAP PO SCH ×2 (18:00→23:58)
[2018-03-03 18:39] VITALS: BP 159/96
[2018-03-03 18:54] VITALS: BP 148/92
[2018-03-03 20:16] VITALS: BP 151/95
[2018-03-03] MEDS: PANTOPRAZOLE 40 MG/10 ML VIAL IV SCH (21:38)
[2018-03-04 01:32] LABS: Hematocrit 29.8 % (36.0-46.0)
[2018-03-04 01:39] LABS: Hemoglobin 9.6 g/dL (12.2-16.2)
[2018-03-04] MEDS ORDERED: DOCUSATE SOD 100 MG CAP PO ONE (02:30)
[2018-03-04] MEDS: chlordiazePOXIDE HCL 5 MG CAP PO SCH ×2 (05:37→13:02)
[2018-03-04] MEDS: metroNIDAZOLE 500MG/100ML 100 ML IV SCH ×3 (05:52→17:19)
[2018-03-04 06:18] LABS: White Blood Cell 3.9 10^3/uL (4.4-10.8)
[2018-03-04 06:20] LABS: Hematocrit 29.4 % (36.0-46.0); Hemoglobin 9.9 g/dL (12.2-16.2); Mean Corpuscular Hemoglobin 25.5 pg (28.0-32.0); Mean Corpuscular Hgb Conc. 33.5 g/dL (32.0-36.0); Mean Corpuscular Volume 76.2 fL (80.0-100.0); Platelet Count (auto) 117 10^3/uL (140-450); Red Blood Cells 3.87 10^6/uL (4.0-5.20)
[2018-03-04 06:24] LABS: Red Cell Distribution Width 24.4 % (11.8-14.3)
[2018-03-04 06:25] LABS: Basophils % (manual) 0 (0.0-2.0); Blast Cells 0; Eosinophils % (manual) 0 (0-7); Metamyelocytes % 0; Myelocytes % 0; Promyelocytes % 0; Reactive Lymphocytes 0
[2018-03-04 06:46] LABS: Albumin 2.4 g/dL (3.4-5.0); BUN/Creatinine Ratio 10.9; Bilirubin, Total 4.8 mg/dL (0.2-1.0); Calcium 7.4 mg/dL (8.5-10.1); Potassium 3.2 mmol/L (3.5-5.1); Total Protein 5.4 g/dL (6.4-8.2)
[2018-03-04 07:10] LABS: Band Neutrophils % (manual) 1; Lymphocytes % (manual) 7 (10.0-50.0); Monocytes % (manual) 6 (0-12)
[2018-03-04] MEDS: cefTRIAXone 1GM/10ml IVPUSH 10 ML IV SCH (09:12)
[2018-03-04] MEDS: THIAMINE 100mg/ml INJ (200mg/2ml VIAL) IV SCH (10:19)
[2018-03-04] MEDS: PANTOPRAZOLE 40 MG/10 ML VIAL IV SCH ×2 (10:20→22:29)
[2018-03-04] MEDS: SPIRONOLACTONE 25 MG TAB PO SCH (10:20)
[2018-03-04] MEDS ORDERED: ALBUTEROL SULF 2.5 MG/0.5ML(0.5%) NEB SOLN NEB PRN (10:45)
[2018-03-04] MEDS: ALBUTEROL SULF 2.5 MG/0.5ML(0.5%) NEB SOLN NEB SCH ×2 (10:59→18:47)
[2018-03-04] MEDS: IPRATROPIUM BROM 0.5 MG/2.5ML INH SOL NEB SCH ×2 (10:59→18:46)
[2018-03-04 11:00] VITALS: BP 152/107
[2018-03-04] MEDS ORDERED: POTASSIUM CHL 20 Meq TABLET PO ONE (14:00)
[2018-03-04] MEDS: PROPRANOLOL HCL 20 MG TAB PO SCH ×2 (14:19→22:30)
[2018-03-04 14:45] LABS: Calcium 7.5 mg/dL (8.5-10.1); Potassium 3.8 mmol/L (3.5-5.1)
[2018-03-04 14:47] LABS: BUN/Creatinine Ratio 10.3
[2018-03-04 15:35] LABS: Alcohol, Urine < 3.0 mg/dL (0-5); Amphetamine Screen, Urine NEGATIVE (NEGATIVE); Barbiturate Scree,Urine NEGATIVE (NEGATIVE); Benzodiazephine Screen, Urine POSITIVE (NEGATIVE); Cannabinoid Screen, Urine NEGATIVE (NEGATIVE); Cocaine Screen, Urine NEGATIVE (NEGATIVE); Opiate Scree,Urine POSITIVE (NEGATIVE); Phencyclidine Screen, Urine NEGATIVE (NEGATIVE)
[2018-03-04 17:00] VITALS: BP 143/91
[2018-03-04 22:00] VITALS: BP 148/98
[2018-03-04] MEDS: LACTULOSE 20Gm/30ML SOLN PO SCH (22:30)
[2018-03-05] MEDS: metroNIDAZOLE 500MG/100ML 100 ML IV SCH ×3 (00:38→11:43)
[2018-03-05] MEDS: chlordiazePOXIDE HCL 5 MG CAP PO SCH ×4 (00:38→17:11)
[2018-03-05] MEDS: IPRATROPIUM BROM 0.5 MG/2.5ML INH SOL NEB SCH ×4 (01:07→19:01)
[2018-03-05] MEDS: ALBUTEROL SULF 2.5 MG/0.5ML(0.5%) NEB SOLN NEB SCH ×4 (01:07→19:01)
[2018-03-05 04:40] VITALS: BP 131/86
[2018-03-05 05:46] LABS: Basophils # (auto) 0.1 uL; Eosinophils # (auto) 0.1 uL; Hemoglobin 9.9 g/dL (12.2-16.2); Lymphocytes # (auto) 1.5 uL; Monocytes # (auto) 0.6 uL; Nucleated Red Blood Cells % 0.1 %; White Blood Cell 5.3 10^3/uL (4.4-10.8)
[2018-03-05 05:49] LABS: Basophils % (auto) 1.9 % (0.0-2.0); Eosinophils % (auto) 1.1 % (0.0-7.0); Hematocrit 30.5 % (36.0-46.0); Lymphocytes % (auto) 28.4 % (10.0-50.0); Mean Corpuscular Hemoglobin 24.9 pg (28.0-32.0); Mean Corpuscular Hgb Conc. 32.4 g/dL (32.0-36.0); Mean Corpuscular Volume 76.8 fL (80.0-100.0); Neutrophils % (auto) 56.6 % (37.0-80.0); Platelet Count (auto) 132 10^3/uL (140-450); Red Blood Cells 3.97 10^6/uL (4.0-5.20)
[2018-03-05 06:05] LABS: Red Cell Distribution Width 24.9 % (11.8-14.3)
[2018-03-05 06:06] LABS: INR 1.59 (0.9-1.15); Partial Thromboplastin Time 32.8 sec (23.78-33.04); Prothrombin Time 16.6 sec (9.27-12.13)
[2018-03-05] MEDS: PROPRANOLOL HCL 20 MG TAB PO SCH ×3 (06:13→23:00)
[2018-03-05 09:00] VITALS: BP 149/102
[2018-03-05] MEDS: LACTULOSE 20Gm/30ML SOLN PO SCH ×2 (09:25→22:59)
[2018-03-05] MEDS: cefTRIAXone 1GM/10ml IVPUSH 10 ML IV SCH (09:26)
[2018-03-05] MEDS: THIAMINE 100mg/ml INJ (200mg/2ml VIAL) IV SCH (09:26)
[2018-03-05] MEDS: PANTOPRAZOLE 40 MG/10 ML VIAL IV SCH ×2 (09:26→22:00)
[2018-03-05] MEDS: SPIRONOLACTONE 25 MG TAB PO SCH (09:27)
[2018-03-05 10:47] LABS: Free T3 2.33 pg/mL (2.3-4.2); Free T4 (Free Thyroxine) 1.02 ng/dL (0.89-1.76)
[2018-03-05] MEDS: chlordiazePOXIDE HCL 25 MG CAP PO PRN ×2 (11:42→11:43)
[2018-03-05 13:00] VITALS: BP 140/82
[2018-03-05 17:00] VITALS: BP 137/90
[2018-03-05 20:54] VITALS: BP 142/81
[2018-03-06] MEDS: IPRATROPIUM BROM 0.5 MG/2.5ML INH SOL NEB SCH ×3 (00:37→11:59)
[2018-03-06] MEDS: ALBUTEROL SULF 2.5 MG/0.5ML(0.5%) NEB SOLN NEB SCH ×3 (00:37→11:59)
[2018-03-06 05:28] LABS: Basophils # (auto) 0.1 uL
[2018-03-06 05:30] LABS: Basophils % (auto) 1.1 % (0.0-2.0); Eosinophils # (auto) 0.1 uL; Eosinophils % (auto) 1.1 % (0.0-7.0); Hematocrit 30.8 % (36.0-46.0); Hemoglobin 10.1 g/dL (12.2-16.2); Lymphocytes % (auto) 36.9 % (10.0-50.0); Mean Corpuscular Hemoglobin 25.2 pg (28.0-32.0); Mean Corpuscular Hgb Conc. 32.6 g/dL (32.0-36.0); Mean Corpuscular Volume 77.2 fL (80.0-100.0); Monocytes # (auto) 0.6 uL; Monocytes % (auto) 10.6 % (0.0-12.0); Neutrophils # (auto) 2.8 uL; Neutrophils % (auto) 50.3 % (37.0-80.0); Nucleated Red Blood Cells % 0.1 %; Platelet Count (auto) 139 10^3/uL (140-450); Red Blood Cells 3.99 10^6/uL (4.0-5.20); White Blood Cell 5.5 10^3/uL (4.4-10.8)
[2018-03-06 05:32] VITALS: BP 139/56
[2018-03-06 05:37] LABS: Red Cell Distribution Width 26.8 % (11.8-14.3)
[2018-03-06 05:54] LABS: Albumin 2.6 g/dL (3.4-5.0); BUN/Creatinine Ratio 11.1; Bilirubin, Total 5.3 mg/dL (0.2-1.0); Potassium 3.9 mmol/L (3.5-5.1)
[2018-03-06] MEDS: chlordiazePOXIDE HCL 5 MG CAP PO SCH ×3 (06:00→11:09)
[2018-03-06] MEDS: PROPRANOLOL HCL 20 MG TAB PO SCH ×2 (06:28→14:00)
[2018-03-06 09:00] VITALS: BP 139/82
[2018-03-06] MEDS: cefTRIAXone 1GM/10ml IVPUSH 10 ML IV SCH (09:00)
[2018-03-06] MEDS: SPIRONOLACTONE 25 MG TAB PO SCH (09:29)
[2018-03-06] MEDS: THIAMINE 100mg/ml INJ (200mg/2ml VIAL) IV SCH (09:29)
[2018-03-06] MEDS: LACTULOSE 20Gm/30ML SOLN PO SCH (09:29)
[2018-03-06] MEDS: PANTOPRAZOLE 40 MG/10 ML VIAL IV SCH (09:29)
[2018-03-06 14:01] VITALS: BP 139/86
== END 2018-03-06 15:14 | disposition home or self-care (01) | DRG 279 ==
LOC: ER 08:35 → TELE 08:36 → TELE-WESTW 03-04 16:29 → WEST WING 03-05 14:15
PROVIDERS: ADMIT Internal Medicine; ATTEND Internal Medicine
PROC: 30233N1 Transfusion of Nonautologous Red Blood Cells into Peripheral Vein, Percutaneous Approach (ICD-10-PCS; principal; 2018-03-03)
DX: K72.90 Hepatic failure, unspecified without coma (principal); E43 Unspecified severe protein-calorie malnutrition; D69.6 Thrombocytopenia, unspecified; D68.9 Coagulation defect, unspecified; K76.6 Portal hypertension; K70.31 Alcoholic cirrhosis of liver with ascites; N39.0 Urinary tract infection, site not specified; E87.6 Hypokalemia; E03.9 Hypothyroidism, unspecified; D64.9 Anemia, unspecified; F32.9 Major depressive disorder, single episode, unspecified; K59.01 Slow transit constipation; Z68.22 Body mass index [BMI] 22.0-22.9, adult; Z98.51 Tubal ligation status; Z80.1 Family history of malignant neoplasm of trachea, bronchus and lung
CPT/HCPCS: 36415; 36430; 51702; 74176; 76700; 80048; 80053; 80061; 80307; 81001; 82140; 82150; 83690; 84132; 84439; 84443; 84481; 85007; 85014; 85018; 85025; 85027; 85045; 85610; 85730; 86850; 86900; 86901; 86920; 87086; 93005; 94640; 96365; 96375; C9113; J0696; J3490

== ENCOUNTER 2018-05-18 12:28 | Emergency (ER) | payer MEDICAID ==
[~2018-05-18] VITALS: Ht 147.3 cm; Wt 43.1 kg
[2018-05-18 12:59] VITALS: BP 133/64
[2018-05-18 13:53] LABS: Urine Bacteria NONE SEEN /hpf (None Seen); Urine Blood Negative /uL (Negative); Urine Mucus FEW (None Seen); Urine Specific Gravity 1.022 (1.001-1.035); Urine WBC 15 /hpf (0 - 5)
[2018-05-18 14:10] LABS: Alcohol, Urine < 3.0 mg/dL (0-5); Amphetamine Screen, Urine NEGATIVE (NEGATIVE); Barbiturate Scree,Urine NEGATIVE (NEGATIVE); Benzodiazephine Screen, Urine NEGATIVE (NEGATIVE); Cocaine Screen, Urine NEGATIVE (NEGATIVE); Opiate Scree,Urine NEGATIVE (NEGATIVE); Phencyclidine Screen, Urine NEGATIVE (NEGATIVE)
[2018-05-18 14:36] LABS: Cannabinoid Screen, Urine POSITIVE (NEGATIVE)
== END 2018-05-18 16:46 | disposition home or self-care (01) ==
LOC: ER 12:28
DX: F41.9 Anxiety disorder, unspecified (principal); F20.9 Schizophrenia, unspecified; K72.90 Hepatic failure, unspecified without coma
CPT/HCPCS: 80307; 81001

== ENCOUNTER 2018-06-12 12:53 | Emergency (ER) | payer MEDICAID ==
[~2018-06-12] VITALS: Ht 147.3 cm; Wt 44.9 kg
[2018-06-12 13:46] VITALS: BP 177/94
== END 2018-06-12 14:01 | disposition home or self-care (01) ==
LOC: ER 12:53
DX: J32.9 Chronic sinusitis, unspecified (principal); Z98.51 Tubal ligation status